=== PATIENT | female | born 2000 | race Caucasian/White ===

== ENCOUNTER 2018-02-13 01:52 | Emergency (ER) | payer SELFPAY ==
[2018-02-13] MEDS ORDERED: DIPHENHYDRAMINE HCL 50 MG/ML VIAL IV ONE (02:19)
[2018-02-13] MEDS ORDERED: DICYCLOMINE HCL 20 MG TABLET PO ONE (02:19)
[2018-02-13] MEDS ORDERED: KETOROLAC TROMETHAMINE INJ/PF 30 MG/1 ML SDV IV ONE (02:19)
[2018-02-13] MEDS ORDERED: METOCLOPRAMIDE HCL INJ/PF 10 MG/2 ML SDV IV ONE (02:19)
--- NOTE | 2018-02-13 02:26 | ER Document Report ---
ED General - General Chief Complaint: Back Pain Stated Complaint: ABDOMINAL PAIN, BACK PAIN, DENTAL PROBLEM Time Seen by Provider: 02/13/18 02:09 Mode of Arrival: Ambulatory Information source: Patient Notes: 17-year-old female with depression, anxiety, asthma, chronic abdominal pain, chronic back pain presents with complaint of back and abdominal pain and headache that started 1 hour prior to arrival. Patient describes the pain as constant, located in the epigastric and right upper quadrant. Headache is located in the forehead and describes as a mild ache. Patient has had associated nausea and one episode of vomiting. Patient states that this has been going on for years. She states that she has had recent endoscopy and colonoscopy as well as multiple CAT scans and ultrasounds which showed nothing. Patient is from [place] and states "they gave me narcotics because Tylenol does not work". Patient does admit to heavy drinking 3 days ago. She does admit to marijuana use for her anxiety. She does smoke cigarettes. Patient also complaining of gum pain. Patient did take Zofran prior to arrival. TRAVEL OUTSIDE OF THE U[place]S. IN LAST 30 DAYS: No - HPI Onset: Other Onset/Duration: Sudden Quality of pain: Sharp Severity: Moderate Associated symptoms: Nausea, Vomiting, Other - Dysuria. denies: Diarrhea, Fever Exacerbated by: Denies Relieved by: Denies - Related Data Allergies/Adverse Reactions: amoxicillin [From Augmentin] Allergy (Verified 02/13/18 01:58) amphetamine [From Adderall] Allergy (Verified 02/13/18 01:58) bupropion [From Wellbutrin] Allergy (Verified 02/13/18 01:58) clavulanic acid [From Augmentin] Allergy (Verified 02/13/18 01:58) dextroamphetamine [From Adderall] Allergy (Verified 02/13/18 01:58) latex Allergy (Verified 02/13/18 01:58) Penicillins Allergy (Verified 02/13/18 01:58) pineapple Allergy (Verified 02/13/18 01:58) trazodone Allergy (Verified 02/13/18 01:58) Past Medical History - General Information source: Patient - Social History Smoking Status: Current Every Day Smoker Cigarette use (# per day): Yes - 10 Smoking Education Provided: Yes - Smoking cessation counseling was provided for 4 minutes at the bedside Frequency of alcohol use: Heavy Drug Abuse: Marijuana Lives with: Family Family History: Reviewed & Not Pertinent Patient has suicidal ideation: No Patient has homicidal ideation: No Pulmonary Medical History: Reports: Hx Asthma GI Medical History: Reports: Other - Chronic abdominal pain Psychiatric Medical History: Reports: Hx Anxiety, Hx Depression Review of Systems - Review of Systems Notes: REVIEW OF SYSTEMS: CONSTITUTIONAL : Denies fever, chills, or sweats. Denies recent illness. Denies weight loss, recent hospitalizations. EENT: Denies visual changes, eye pain. Denies sore throat, oral lesions, difficulty swallowing. CARDIOVASCULAR: Denies chest pain. Denies palpitations. Denies lower extremity edema. RESPIRATORY: Denies cough. Denies shortness of breath, wheezing. GASTROINTESTINAL: Denies distention. Denies diarrhea. Denies blood in vomitus, stools, or per rectum. Denies black, tarry stools. Denies constipation. GENITOURINARY: Denies difficulty urinating, frequency, blood in urine, or vaginal discharge. MUSCULOSKELETAL: Denies neck pain or stiffness. Denies joint pain or swelling. SKIN: Denies rash, lesions or sores. HEMATOLOGIC : Denies easy bruising or bleeding. LYMPHATIC: Denies swollen glands. NEUROLOGICAL: Denies confusion or altered mental status. Denies loss of consciousness. Denies dizziness or lightheadedness. Denies headache. Denies weakness or paralysis. Denies problems difficulty with ambulation, slurred speech. Denies sensory loss, numbness, or tingling. Denies seizures. PSYCHIATRIC: Denies depression, suicidal ideation, or homicidal ideation. Denies visual or auditory hallucinations. PHYSICAL EXAMINATION: GENERAL: Well-appearing, well-nourished and in no acute distress. HEAD: Atraumatic, normocephalic. EYES: Pupils equal round and reactive to light, extraocular movements intact, conjunctiva are normal. ENT: Nares patent, oropharynx clear without exudates. Moist mucous membranes. NECK: Normal range of motion, supple without lymphadenopathy LUNGS: Breath sounds clear to auscultation bilaterally and equal. No wheezes rales or rhonchi. HEART: Regular rate and rhythm without murmurs ABDOMEN: Soft, nontender, nondistended abdomen. No guarding, no rebound. No masses appreciated. Female : deferred Musculoskeletal: Normal range of motion, no pitting or edema. No cyanosis. NEUROLOGICAL: Cranial nerves grossly intact. Normal speech, normal gait. Normal sensory, motor exams PSYCH: Normal mood, normal affect. SKIN: Warm, Dry, normal turgor, no rashes or lesions noted. Physical Exam - Vital signs Vitals: Temp Pulse Resp BP Pulse Ox 98.3 F 93 H 16 101/67 98 02/13/18 02:01 02/13/18 02:01 02/13/18 02:01 02/13/18 02:01 02/13/18 02:01 - Notes Notes: PHYSICAL EXAMINATION: GENERAL: Well-appearing, well-nourished and in no acute distress. HEAD: Atraumatic, normocephalic. EYES: Pupils equal round and reactive to light, extraocular movements intact, conjunctiva are normal. ENT: Nares patent, oropharynx clear without exudates. Moist mucous membranes. NECK: Normal range of motion, supple without lymphadenopathy LUNGS: Breath sounds clear to auscultation bilaterally and equal. No wheezes rales or rhonchi. HEART: Regular rate and rhythm without murmurs ABDOMEN: Diffuse abdominal tenderness with palpation. No guarding, no rebound. No masses appreciated. Female : deferred Musculoskeletal: Normal range of motion, no pitting or edema. No cyanosis. Bilateral paraspinal tenderness of the lumbar spine. NEUROLOGICAL: Cranial nerves grossly intact. Normal speech, normal gait. Normal sensory, motor exams PSYCH: Normal mood, normal affect. SKIN: Warm, Dry, normal turgor, no rashes or lesions noted. Course - Re-evaluation Re-evalutation: Laboratory 02/13/18 02/13/18 02/13/18 02:26 02:26 02:26 WBC 7.2 RBC 4.42 Hgb 13.4 Hct 38.7 MCV 88 MCH 30.3 MCHC 34.6 RDW 13.3 Plt Count 194 Seg Neutrophils % 40.3 L Lymphocytes % 45.8 H Monocytes % 10.8 Eosinophils % 2.3 Basophils % 0.8 Absolute Neutrophils 2.9 Absolute Lymphocytes 3.3 Absolute Monocytes 0.8 Absolute Eosinophils 0.2 Absolute Basophils 0.1 Sodium 142.2 Potassium 3.8 Chloride 103 Carbon Dioxide 29 Anion Gap 10 BUN 17 Creatinine 0.82 Est GFR ( Amer) > 60 Est GFR (Non-Af Amer) > 60 Glucose 91 Calcium 9.3 Total Bilirubin 1.1 Direct Bilirubin 0.2 Neonat Total Bilirubin Not Reportable Neonat Direct Bilirubin Not Reportable Neonat Indirect Bili Not Reportable AST 31 H ALT 43 H Alkaline Phosphatase 101 Total Protein 7.7 Albumin 4.1 Lipase 105.0 Urine Color YELLOW Urine Appearance CLOUDY Urine pH 7.0 Ur Specific [place] 1.024 Urine Protein 30 H Urine Glucose (UA) NEGATIVE Urine Ketones TRACE H Urine Blood NEGATIVE Urine Nitrite NEGATIVE Urine Bilirubin NEGATIVE Urine Urobilinogen 4.0 H Ur Leukocyte Esterase SMALL H Urine WBC (Auto) 45 Urine RBC (Auto) 7 Squamous Epi Cells Auto 5 Urine Mucus (Auto) RARE Urine Yeast (Budding) PRESENT Urine Ascorbic Acid NEGATIVE Urine HCG, Qual NEGATIVE Urine Opiates Screen Urine Methadone Screen Ur Barbiturates Screen Ur Phencyclidine Scrn Ur Amphetamines Screen U Benzodiazepines Scrn Urine Cocaine Screen U Marijuana (THC) Screen Serum Alcohol < 10 02/13/18 02:26 WBC RBC Hgb Hct MCV MCH MCHC RDW Plt Count Seg Neutrophils % Lymphocytes % Monocytes % Eosinophils % Basophils % Absolute Neutrophils Absolute Lymphocytes Absolute Monocytes Absolute Eosinophils Absolute Basophils Sodium Potassium Chloride Carbon Dioxide Anion Gap BUN Creatinine Est GFR ( Amer) Est GFR (Non-Af Amer) Glucose Calcium Total Bilirubin Direct Bilirubin Neonat Total Bilirubin Neonat Direct Bilirubin Neonat Indirect Bili AST ALT Alkaline Phosphatase Total Protein Albumin Lipase Urine Color Urine Appearance Urine pH Ur Specific [place] Urine Protein Urine Glucose (UA) Urine Ketones Urine Blood Urine Nitrite Urine Bilirubin Urine Urobilinogen Ur Leukocyte Esterase Urine WBC (Auto) Urine RBC (Auto) Squamous Epi Cells Auto Urine Mucus (Auto) Urine Yeast (Budding) Urine Ascorbic Acid Urine HCG, Qual Urine Opiates Screen NEGATIVE Urine Methadone Screen NEGATIVE Ur Barbiturates Screen NEGATIVE Ur Phencyclidine Scrn NEGATIVE Ur Amphetamines Screen NEGATIVE U Benzodiazepines Scrn NEGATIVE Urine Cocaine Screen NEGATIVE U Marijuana (THC) Screen UNCONFIRMED POSITIVE Serum Alcohol Abdomen Ultrasound 02/13/18 02:20 IMPRESSION: Unremarkable exam copyright 2011 [facility] [employer]- All Rights Reserved 02/13/18 03:44 Patient refusing IV placement. 02/13/18 03:59 Patient presents with chronic back and abdominal pain as well as headache. Found to have acute cystitis. Vitals wnl. No history of fever, or constitution symptoms to suggest ascending infection at this time. Patient is well in appearance, tolerating oral intake without difficulty. Patient's abdominal tenderness is chronic. She has had extensive recent workup including endoscopy , colonoscopy and multiple CAT scans which she states showed nothing. Right upper quadrant ultrasound performed today was within normal limits. Patient received Reglan and Benadryl for headache and nausea and Bentyl for abdominal pain. Her exam is not consistent with acute appendicitis, biliary pathology, acute pancreatitis, tubo-ovarian abscesses, or pelvic inflammatory disease. Patient will be started on antibiotics at this time. A culture has been sent. They will be discharged with return precautions and follow-up recommendations. 02/13/18 04:02 02/13/18 04:07 - Vital Signs Vital signs: Temp Pulse Resp BP Pulse Ox 98.3 F 93 H 16 101/67 98 02/13/18 02:01 02/13/18 02:01 02/13/18 02:01 02/13/18 02:01 02/13/18 02:01 - Laboratory Result Diagrams: 02/13/18 02:26 02/13/18 02:26 Laboratory results interpreted by me: 02/13/18 02/13/18 02/13/18 02:26 02:26 02:26 Seg Neutrophils % 40.3 L Lymphocytes % 45.8 H AST 31 H ALT 43 H Urine Protein 30 H Urine Ketones TRACE H Urine Urobilinogen 4.0 H Ur Leukocyte Esterase SMALL H - Diagnostic Test Radiology reviewed: Image reviewed, Reports reviewed Discharge - Discharge Clinical Impression: Chronic abdominal pain Urinary tract infection Qualifiers: Urinary tract infection type: site unspecified Hematuria presence: without hematuria Qualified Code(s): N39.0 - Urinary tract infection, site not specified Chronic back pain Qualifiers: Back pain location: low back pain Back pain laterality: bilateral Sciatica presence: without sciatica Qualified Code(s): M54.5 - Low back pain Condition: Good Disposition: HOME, SELF-CARE Instructions: Abdominal Pain ([facility]), Low Back Pain ([facility]), Urinary Tract Infection ([facility]) Additional Instructions: Your urine shows findings consistent with a urinary tract infection. Please take all the antibiotics as directed even if your symptoms have improved. Please follow-up with your primary care physician as needed. Return to emergency room if you develop fever >101F, persistent vomiting, become lethargic , have severe pain in your sides, or any other symptoms that are concerning to you. Follow up with your [id number] hours for further care or return to the ED IMMEDIATELY if symptoms worsen or you have any concerns. If you cannot afford to follow up with your primary care physician a list of low cost clinics have been provided at the end of your discharge papers as well. Most prescribed medications have multiple side effects. The safest thing to do is when filling your prescription speak to your pharmacist regarding possible interactions with your normal home medications and over the counter medications such as Ibuprofen, Tylenol, Benadryl. If you experience any symptoms that cause you discomfort or concern you should discontinue the medication immediately and return to the emergency room or call your primary care physician. Prescriptions: Cephalexin Monohydrate [Keflex 500 mg Capsule] 500 mg PO BID 5 Days #10 capsule Dicyclomine HCl [Bentyl 20 mg Tablet] 20 mg PO QID #15 tablet Forms: Smoking Cessation Education
[2018-02-13] MEDS ORDERED: RINGERS SOLUTION,LACTATED 1,000 ML IV ONE (02:27)
[2018-02-13] MEDS ORDERED: ALBUTEROL SULFATE HFA (90 MCG/PUFF) 8 GM MDI (1 MDI/ER DISP) IH PRN (02:28)
[2018-02-13 02:48] LABS: ABSOLUTE BASOPHILS # (AUTO) 0.1 10^3/uL (0.0-0.2); ABSOLUTE EOSINOPHILS # (AUTO) 0.2 10^3/uL (0.0-0.6); ABSOLUTE LYMPHOCYTES (AUTO) 3.3 10^3/uL (0.5-4.7); ABSOLUTE MONOCYTES (AUTO) 0.8 10^3/uL (0.1-1.4); ABSOLUTE NEUT (AUTO) 2.9 10^3/uL (1.7-8.2); BASOPHILS % (AUTO) 0.8 % (0-2); EOSINOPHILS % (AUTO) 2.3 % (0-6); HEMATOCRIT 38.7 % (36.0-47.0); HEMOGLOBIN 13.4 g/dL (12.0-15.5); LYMPHOCYTES % (AUTO) 45.8 % (13-45); MEAN CORPUSCULAR HEMOGLOBIN 30.3 pg (27.0-33.4); MEAN CORPUSCULAR HGB CONC 34.6 g/dL (32.0-36.0); MEAN CORPUSCULAR VOLUME 88 fl (80-97); MONOCYTES % (AUTO) 10.8 % (3-13); PLATELET COUNT 194 10^3/uL (150-450); RED BLOOD COUNT 4.42 10^6/uL (3.72-5.28); RED CELL DISTRIBUTION WIDTH 13.3 % (11.5-14.0); SEGMENTED NEUTROPHILS % (AUTO) 40.3 % (42-78); TOTAL CELLS COUNTED % (AUTO) 100 %; WHITE BLOOD COUNT 7.2 10^3/uL (4.0-10.5)
[2018-02-13 02:50] LABS: APPEARANCE,URINE CLOUDY; BILIRUBIN,URINE NEGATIVE (NEGATIVE); COLOR,URINE YELLOW; GLUCOSE, URINE NEGATIVE (NEGATIVE); KETONES,URINE TRACE mg/dL (NEGATIVE); LEUKOCYTE ESTERASE,URINE SMALL (NEGATIVE); NITRITE,URINE NEGATIVE (NEGATIVE); PROTEIN,URINE 30 mg/dL (NEGATIVE); URINE SPECIFIC GRAVITY 1.024
[2018-02-13 03:02] LABS: URINE AMPHETAMINES SCREEN NEGATIVE; URINE BARBITURATES SCREEN NEGATIVE; URINE BENZODIAZEPINES SCREEN NEGATIVE; URINE COCAINE SCREEN NEGATIVE; URINE MARIJUANA (THC) SCREEN UNCONFIRMED POSITIVE; URINE METHADONE SCREEN NEGATIVE; URINE PHENCYCLIDINE SCREEN NEGATIVE
--- NOTE | 2018-02-13 03:02 | RADIOLOGY REPORT (SQ) ---
EXAM DESCRIPTION: US ABDOMEN LIMITED COMPLETED DATE/TME: 02/13/2018 02:20 CLINICAL HISTORY: 17 years, Female, ruq pain COMPARISON: None. TECHNIQUE: Limited ultrasound of the right upper quadrant LIMITATIONS: None. FINDINGS: The liver is homogenous in echotexture without focal lesion. No gallstones or gallbladder wall thickening. The CBD measures 1 mm. The visualized portions of the right kidney, pancreas, and abdominal aorta are unremarkable. There is no ascites. IMPRESSION: Unremarkable exam copyright 2010 [employer]- All Rights Reserved
[2018-02-13 03:07] LABS: ALANINE AMINOTRANSFERASE 43 U/L (5-35); ALBUMIN 4.1 g/dL (3.7-5.6); ALKALINE PHOSPHATASE 101 U/L (50-135); ANION GAP 10 (5-19); ASPARTATE AMINO TRANSFERASE 31 U/L (5-30); BILIRUBIN,DIRECT 0.2 mg/dL (0.0-0.4); BILIRUBIN,TOTAL 1.1 mg/dL (0.2-1.3); BLOOD UREA NITROGEN 17 mg/dL (7-20); CALCIUM 9.3 mg/dL (8.4-10.2); CARBON DIOXIDE 29 mmol/L (22-30); CHLORIDE 103 mmol/L (98-107); GLUCOSE 91 mg/dL (75-110); POTASSIUM 3.8 mmol/L (3.6-5.0); SODIUM 142.2 mmol/L (137-145); TOTAL PROTEIN 7.7 g/dL (6.3-8.2)
[2018-02-13] MEDS ORDERED: METOCLOPRAMIDE HCL 10 MG TABLET PO ONE (03:26)
[2018-02-13] MEDS ORDERED: DIPHENHYDRAMINE HCL 50 MG CAPSULE PO ONE (03:26)
[2018-02-13 03:27] LABS: ALCOHOL < 10 mg/dL (NONE DETECTED)
[2018-02-13] MEDS ORDERED: CEPHALEXIN 500 MG CAPSULE PO ONE (03:42)
[2018-02-13 04:30] VITALS: BP 106/63
== END 2018-02-13 04:31 | disposition home or self-care (01) ==
LOC: ER 01:52
DX: N39.0 Urinary tract infection, site not specified (principal); M54.5 Low back pain; R51 Headache; R10.13 Epigastric pain; R10.11 Right upper quadrant pain; M54.9 Dorsalgia, unspecified; R10.9 Unspecified abdominal pain; G89.29 Other chronic pain; K08.89 Other specified disorders of teeth and supporting structures; F32.9 Major depressive disorder, single episode, unspecified; F41.9 Anxiety disorder, unspecified; R11.2 Nausea with vomiting, unspecified; R30.0 Dysuria; F17.210 Nicotine dependence, cigarettes, uncomplicated; J45.909 Unspecified asthma, uncomplicated
CPT/HCPCS: 99406; 99284; 36415; 87086; 80307 ×2; 83690; 85025; 81025; 80053; 81001; 76705; J3490 ×2

== ENCOUNTER 2018-02-16 14:19 | Emergency (ER) | payer SELFPAY ==
--- NOTE | 2018-02-16 14:42 | ER Document Report ---
ED Medical Screen (RME) - General Chief Complaint: Breathing Difficulty Stated Complaint: NAUSEA,SHORT OF BREATH Time Seen by Provider: 02/16/18 14:40 Mode of Arrival: Ambulatory Information source: Patient TRAVEL OUTSIDE OF THE U[place] IN LAST 30 DAYS: No - HPI Patient complains to provider of: hematemesis; seizures Onset: Other - pt with multiple c/o including vomiting blood yesterday, siezures, and low blood sugar - Related Data Allergies/Adverse Reactions: amoxicillin [From Augmentin] Allergy (Verified 02/16/18 14:20) amphetamine [From Adderall] Allergy (Verified 02/16/18 14:20) bupropion [From Wellbutrin] Allergy (Verified 02/16/18 14:20) clavulanic acid [From Augmentin] Allergy (Verified 02/16/18 14:20) dextroamphetamine [From Adderall] Allergy (Verified 02/16/18 14:20) latex Allergy (Verified 02/16/18 14:20) Penicillins Allergy (Verified 02/16/18 14:20) pineapple Allergy (Verified 02/16/18 14:20) trazodone Allergy (Verified 02/16/18 14:20) Past Medical History Pulmonary Medical History: Reports: Hx Asthma, Hx Bronchitis Neurological Medical History: Reports: Hx Seizures Renal/ Medical History: Denies: Hx Peritoneal Dialysis Musculoskeltal Medical History: Reports Hx Arthritis Psychiatric Medical History: Reports: Hx Anxiety, Hx Bipolar Disorder, Hx Depression Past Surgical History: Reports: Hx Oral Surgery, Hx Orthopedic Surgery Physical Exam - Vital signs Vitals: Temp Pulse Resp BP Pulse Ox 98.0 F 82 16 104/63 98 02/16/18 14:30 02/16/18 14:30 02/16/18 14:30 02/16/18 14:30 02/16/18 14:30 Course - Vital Signs Vital signs: Temp Pulse Resp BP Pulse Ox 98.0 F 82 16 104/63 98 02/16/18 14:30 02/16/18 14:30 02/16/18 14:30 02/16/18 14:30 02/16/18 14:30
[2018-02-16] MEDS ORDERED: NORMAL SALINE 1000 ML 1,000 ML IV ONE (15:36)
[2018-02-16 15:43] LABS: ABSOLUTE MONOCYTES (AUTO) 0.4 10^3/uL (0.1-1.4); BASOPHILS % (AUTO) 0.6 % (0-2); EOSINOPHILS % (AUTO) 0.2 % (0-6); HEMATOCRIT 43.6 % (36.0-47.0); HEMOGLOBIN 15.2 g/dL (12.0-15.5); LYMPHOCYTES % (AUTO) 26.8 % (13-45); MEAN CORPUSCULAR HEMOGLOBIN 30.5 pg (27.0-33.4); MEAN CORPUSCULAR HGB CONC 34.8 g/dL (32.0-36.0); MEAN CORPUSCULAR VOLUME 88 fl (80-97); MONOCYTES % (AUTO) 5.5 % (3-13); PLATELET COUNT 241 10^3/uL (150-450); RED BLOOD COUNT 4.98 10^6/uL (3.72-5.28); RED CELL DISTRIBUTION WIDTH 13.3 % (11.5-14.0); SEGMENTED NEUTROPHILS % (AUTO) 66.9 % (42-78); TOTAL CELLS COUNTED % (AUTO) 100 %; WHITE BLOOD COUNT 7.4 10^3/uL (4.0-10.5)
[2018-02-16 15:55] LABS: APPEARANCE,URINE SLIGHTLY-CLOUDY; BILIRUBIN,URINE NEGATIVE (NEGATIVE); COLOR,URINE YELLOW; GLUCOSE, URINE NEGATIVE (NEGATIVE); KETONES,URINE NEGATIVE (NEGATIVE); LEUKOCYTE ESTERASE,URINE NEGATIVE (NEGATIVE); NITRITE,URINE NEGATIVE (NEGATIVE); PROTEIN,URINE NEGATIVE (NEGATIVE); URINE SPECIFIC GRAVITY 1.016; UROBILINOGEN,URINE NEGATIVE mg/dL (<2.0)
[2018-02-16 16:03] LABS: ALANINE AMINOTRANSFERASE 25 U/L (5-35); ALBUMIN 4.7 g/dL (3.7-5.6); ALKALINE PHOSPHATASE 101 U/L (50-135); ANION GAP 10 (5-19); ASPARTATE AMINO TRANSFERASE 37 U/L (5-30); BILIRUBIN,DIRECT 0.3 mg/dL (0.0-0.4); BLOOD UREA NITROGEN 10 mg/dL (7-20); CALCIUM 9.5 mg/dL (8.4-10.2); CARBON DIOXIDE 28 mmol/L (22-30); CHLORIDE 103 mmol/L (98-107); GLUCOSE 112 mg/dL (75-110); LIPASE 56.3 U/L (23-300); POTASSIUM 4.2 mmol/L (3.6-5.0); SODIUM 140.9 mmol/L (137-145); TOTAL PROTEIN 8.6 g/dL (6.3-8.2)
[2018-02-16 16:22] LABS: URINE AMPHETAMINES SCREEN NEGATIVE; URINE BARBITURATES SCREEN NEGATIVE; URINE BENZODIAZEPINES SCREEN NEGATIVE; URINE COCAINE SCREEN NEGATIVE; URINE MARIJUANA (THC) SCREEN NEGATIVE; URINE METHADONE SCREEN NEGATIVE; URINE PHENCYCLIDINE SCREEN NEGATIVE
--- NOTE | 2018-02-16 16:39 | PSYCHOLOGICAL NOTE ---
Psych Note - Psych Note Date seen by psych provider: 02/16/18 Time seen by psych provider: 16:00 Psych Note: Reason for Consult: anxiety Patient reports she just arrived here from [place] and has extensive psychiatric history. She reports that she has been inpatient multiple times. She reports she would like assistance in learning local resources to obtain outpatient mental health services. She asked about medications such as Xanax or Thorazine as a "as needed for my depression." When asked about her mental health diagnosis she reports "ADHD ADD ODD PTSD autism 1, bipolar, borderline personality disorder, Asperger's, major depressive disorder, anxiety, social anxiety, I pretty much have everything there is." Patient is alert and orientated to person, place, time and circumstance. Mood is euthymic with congruent affect is smiling engaging with clinician. Patient denies current suicidal and homicidal ideation. Delusions are absent behaviors congruent with an intact reality based presentation I organized and linear thought process. Eye contact is well maintained. Conversational speech is within normal rate, tone and prosody. Intellectual abilities appear to be within the average range. Attention and concentration are fair. Insight, judgment, impulse control are fair. No medication recommendations at this time Borderline personality disorder Impression\\plan: Patient is cleared from acute psychiatric services. Clinician provided psychoeducation on available services in local area, the use of emergency services, and proper use of medications and compliancy. Patient was provided resource list of local providers including mobile crisis contact information. Patient was also provided local transit information with bus stops and cost in addition to caring clinic information. Dr. Lebron was consulted care management this patient; attending physicians in agreement with recommendations and disposition.
--- NOTE | 2018-02-16 16:49 | ER Document Report ---
ED General - General Chief Complaint: Breathing Difficulty Stated Complaint: NAUSEA,SHORT OF BREATH Time Seen by Provider: 02/16/18 14:40 Mode of Arrival: Ambulatory TRAVEL OUTSIDE OF THE [place] IN LAST 30 DAYS: No - HPI Patient complains to provider of: Multiple complaints Notes: Patient coming in for multiple complaints. Patient states she is having abdominal pain nausea vomiting shortness of breath also has had multiple stress- induced seizures patient denies a history of seizures in the past however states that she has had stress-induced seizures before. Patient denies taking any medications for seizures in the past. Patient states recently was seen for abdominal pain however medications for the abdominal pain are not working patient was prescribed Bentyl and also was given Zofran for nausea. Patient is requesting stronger medications for nausea. Patient states she does smoke nerves states she is slightly short of breath. Patient otherwise upon my evaluation is resting comfortably no signs of any obvious distress. - Related Data Allergies/Adverse Reactions: clozapine [From Clozaril] Allergy (Severe, Verified 02/16/18 14:47) amoxicillin [From Augmentin] Allergy (Verified 02/16/18 14:47) amphetamine [From Adderall] Allergy (Verified 02/16/18 14:47) bupropion [From Wellbutrin] Allergy (Verified 02/16/18 14:47) clavulanic acid [From Augmentin] Allergy (Verified 02/16/18 14:47) dextroamphetamine [From Adderall] Allergy (Verified 02/16/18 14:47) latex Allergy (Verified 02/16/18 14:47) Penicillins Allergy (Verified 02/16/18 14:47) pineapple Allergy (Verified 02/16/18 14:47) trazodone Allergy (Verified 02/16/18 14:47) Past Medical History - General Information source: Patient - Social History Smoking Status: Current Every Day Smoker Chew tobacco use (# tins/day): No Frequency of alcohol use: 2x this week Drug Abuse: Marijuana Family History: Reviewed & Not Pertinent Patient has suicidal ideation: No Patient has homicidal ideation: No Pulmonary Medical History: Reports: Hx Asthma, Hx Bronchitis Neurological Medical History: Reports: Hx Seizures Renal/ Medical History: Denies: Hx Peritoneal Dialysis Musculoskeletal Medical History: Reports Hx Arthritis Psychiatric Medical History: Reports: Hx Anxiety, Hx Bipolar Disorder, Hx Depression Past Surgical History: Reports: Hx Oral Surgery, Hx Orthopedic Surgery Review of Systems - Review of Systems Constitutional: See HPI EENT: No symptoms reported Cardiovascular: No symptoms reported Respiratory: No symptoms reported Gastrointestinal: No symptoms reported Genitourinary: No symptoms reported Female Genitourinary: No symptoms reported Musculoskeletal: No symptoms reported Skin: No symptoms reported Hematologic/Lymphatic: No symptoms reported Neurological/Psychological: No symptoms reported Physical Exam - Vital signs Vitals: Temp Pulse Resp BP Pulse Ox 98.0 F 82 16 104/63 98 02/16/18 14:30 02/16/18 14:30 02/16/18 14:30 02/16/18 14:30 02/16/18 14:30 Interpretation: Normal - General General appearance: Appears well, Alert - HEENT Head: Normocephalic, Atraumatic Eyes: Normal Pupils: PERRL - Respiratory Respiratory status: No respiratory distress Chest status: Nontender Breath sounds: Normal Chest palpation: Normal - Cardiovascular Rhythm: Regular Heart sounds: Normal auscultation Murmur: No - Abdominal Inspection: Normal Distension: No distension Bowel sounds: Normal Tenderness: Nontender Organomegaly: No organomegaly - Back Back: Normal, Nontender - Extremities General upper extremity: Normal inspection, Nontender, Normal color, Normal ROM , Normal temperature General lower extremity: Normal inspection, Nontender, Normal color, Normal ROM , Normal temperature, Normal weight bearing. No: Aroldo's sign - Neurological Neuro grossly intact: Yes Cognition: Normal Orientation: AAOx4 Roly Coma Scale Eye Opening: Spontaneous Sarah Coma Scale Verbal: Oriented Sarah Coma Scale Motor: Obeys Commands Sarah Coma Scale Total: 15 Speech: Normal Motor strength normal: LUE, RUE, LLE, RLE Sensory: Normal - Psychological Associated symptoms: Normal affect, Normal mood - Skin Skin Temperature: Warm Skin Moisture: Dry Skin Color: Normal Course - Re-evaluation Re-evalutation: 02/16/18 21:59 Patient with multiple complaints physical examination otherwise benign. Laboratory studies also did not reveal any critical pathology. Recommend patient continue her medications we will give the patient Reglan for her nausea. Patient information will be given to our executive secretary social welfare that she has no primary care but has multiple chronic issues that would need primary care follow -up - Vital Signs Vital signs: Temp Pulse Resp BP Pulse Ox 98.0 F 87 16 93/79 L 100 02/16/18 17:03 02/16/18 17:03 02/16/18 14:30 02/16/18 17:03 02/16/18 17:03 - Laboratory Result Diagrams: 02/16/18 15:00 02/16/18 15:00 Laboratory results interpreted by me: 02/16/18 02/16/18 15:00 15:00 Glucose 112 H AST 37 H Total Protein 8.6 H Urine Blood SMALL H Discharge - Discharge Clinical Impression: Chronic abdominal pain, Nausea, No problem, feared complaint unfounded Condition: Good Disposition: HOME, SELF-CARE Instructions: Abdominal Pain ([facility]), Family Physicians / Practices, Nausea or Vomiting, Nonspecific ([facility]) Additional Instructions: Your evaluation does not reveal any critical pathology. I recommend follow-up with a family physicians provided I will give our executive secretary social welfare your information please make sure we have good contact information so that we can establish a primary care for further evaluation of your chronic disease processes. Continue all medications as prescribed along with your Zofran you can take the Reglan as I was prescribing today. Return to ER if symptoms worsen. Prescriptions: Metoclopramide HCl [Reglan] 5 mg PO Q6 #30 tablet
[2018-02-16 17:06] VITALS: BP 93/79
== END 2018-02-16 17:06 | disposition home or self-care (01) ==
LOC: ER 14:19
DX: R10.9 Unspecified abdominal pain (principal); G89.29 Other chronic pain; R11.2 Nausea with vomiting, unspecified; R06.02 Shortness of breath; R56.9 Unspecified convulsions; F17.200 Nicotine dependence, unspecified, uncomplicated; J45.909 Unspecified asthma, uncomplicated; R11.0 Nausea
CPT/HCPCS: 99285; 96360; 36415; 83690; 85025; 81025; 80053; 81001; 80307; J7030

== ENCOUNTER 2018-02-18 13:34 | Emergency (ER) | payer SELFPAY ==
[2018-02-18 13:45] VITALS: BP 114/74
[2018-02-18] MEDS ORDERED: ONDANSETRON 4 MG TAB.RAPDIS PO ONE (16:06)
[2018-02-18] MEDS ORDERED: ONDANSETRON ODT 4 MG TAB (6 TAB/ER DISP) PO PRN (16:07)
--- NOTE | 2018-02-18 16:09 | ER Document Report ---
ED General - General Chief Complaint: Nausea/Vomiting Stated Complaint: ABDOMINAL PAIN Time Seen by Provider: 02/18/18 15:51 Mode of Arrival: Medic Information source: Patient, [facility] Records Notes: 17-year-old female with depression, anxiety, asthma, chronic abdominal pain, chronic back pain presents with complaint of back and abdominal pain and headache that started 1 hour prior to arrival. Patient describes the pain as constant, located in the epigastric and right upper quadrant. Headache is located in the forehead and describes as a mild ache. Patient has had associated nausea and vomiting which is chronic. Patient states that this has been going on for years. She states that she has had recent endoscopy and colonoscopy as well as multiple CAT scans and ultrasounds which showed nothing. Patient is from [place] and states "they gave me narcotics because Tylenol does not work". Patient does admit to heavy drinking 3 days ago. She does admit to marijuana use for her anxiety. She does smoke cigarettes. Patient also states she has had multiple stress-induced seizures patient denies a history of seizures in the past however states that she has had stress- induced seizures before. Last seizure was just prior to arrival while on the phone with EMS. Patient reports that she is living in a hotel but is from [place]. Patient denies taking any medications for seizures in the past. Patient states recently was seen for abdominal pain however medications for the abdominal pain are not working patient was prescribed Bentyl and also was given Zofran for nausea. Patient is requesting stronger medications for nausea. Patient states she does smoke nerves states she is slightly short of breath. Patient otherwise upon my evaluation is resting comfortably no signs of any obvious distress. This is the patient's third emergency department visit in the month of February. TRAVEL OUTSIDE OF THE [place] IN LAST 30 DAYS: No - HPI Onset: Other Onset/Duration: Persistent Quality of pain: Achy Associated symptoms: Nausea, Vomiting. denies: Fever Exacerbated by: Denies Relieved by: Denies Similar symptoms previously: Yes Recently seen / treated by doctor: Yes - Related Data Allergies/Adverse Reactions: clozapine [From Clozaril] Allergy (Severe, Verified 02/18/18 13:38) amoxicillin [From Augmentin] Allergy (Verified 02/18/18 13:38) amphetamine [From Adderall] Allergy (Verified 02/18/18 13:38) bupropion [From Wellbutrin] Allergy (Verified 02/18/18 13:38) clavulanic acid [From Augmentin] Allergy (Verified 02/18/18 13:38) dextroamphetamine [From Adderall] Allergy (Verified 02/18/18 13:38) latex Allergy (Verified 02/18/18 13:38) Penicillins Allergy (Verified 02/18/18 13:38) pineapple Allergy (Verified 02/18/18 13:38) trazodone Allergy (Verified 02/18/18 13:38) Past Medical History - General Information source: Patient - Social History Smoking Status: Current Some Day Smoker Cigarette use (# per day): Yes Frequency of alcohol use: Occasional Drug Abuse: Marijuana Lives with: Alone Family History: Reviewed & Not Pertinent Patient has suicidal ideation: No Patient has homicidal ideation: No Pulmonary Medical History: Reports: Hx Asthma, Hx Bronchitis Neurological Medical History: Reports: Hx Seizures Renal/ Medical History: Denies: Hx Peritoneal Dialysis Musculoskeletal Medical History: Reports Hx Arthritis Psychiatric Medical History: Reports: Hx Anxiety, Hx Bipolar Disorder, Hx Depression Past Surgical History: Reports: Hx Oral Surgery, Hx Orthopedic Surgery Review of Systems - Review of Systems Constitutional: Recent illness. denies: Fever, Malaise EENT: denies: Nose congestion Cardiovascular: denies: Chest pain Respiratory: denies: Cough, Short of breath Gastrointestinal: Abdominal pain, Nausea, Vomiting Genitourinary: denies: Dysuria Female Genitourinary: denies: Musculoskeletal: No symptoms reported Skin: denies: Rash Hematologic/Lymphatic: No symptoms reported Neurological/Psychological: Seizure -: Yes All other systems reviewed and negative Physical Exam - Vital signs Vitals: Temp Pulse Resp BP Pulse Ox 98.2 F 84 16 114/74 98 02/18/18 13:42 02/18/18 13:42 02/18/18 13:42 02/18/18 13:42 02/18/18 13:42 Interpretation: Normal - Notes Notes: PHYSICAL EXAMINATION: GENERAL: Well-appearing, well-nourished and in no acute distress. HEAD: Atraumatic, normocephalic. No tongue laceration EYES: Pupils equal round and reactive to light, extraocular movements intact, conjunctiva are normal. ENT: Nares patent, oropharynx clear without exudates. Moist mucous membranes. NECK: Normal range of motion, supple without lymphadenopathy LUNGS: Breath sounds clear to auscultation bilaterally and equal. No wheezes rales or rhonchi. HEART: Regular rate and rhythm without murmurs ABDOMEN: Soft, nontender, nondistended abdomen. No guarding, no rebound. No masses appreciated. No evidence of urinary incontinence Female : deferred Musculoskeletal: Normal range of motion, no pitting or edema. No cyanosis. NEUROLOGICAL: Cranial nerves grossly intact. Normal speech, normal gait. Normal sensory, motor exams PSYCH: Normal mood, normal affect. SKIN: Warm, Dry, normal turgor, no rashes or lesions noted. Course - Re-evaluation Re-evalutation: 12/ Temp Pulse Resp BP Pulse Ox 98.2 F 84 16 114/74 98 02/18/18 13:42 02/18/18 13:42 02/18/18 13:42 02/18/18 13:42 02/18/18 13:42 19:44 17-year-old female presents for the third time in 10 days with complaints of nausea, vomiting, abdominal pain and seizure-like activity. Vital signs reviewed and within normal limits upon arrival. Patient does not appear toxic or dehydrated. She is in no acute distress. She is alert and oriented x4. Does not appear postictal. Has no evidence of tongue laceration and or urinary incontinence. Unclear why the patient is in [place] when she states that she lives in [place]. She states that she has been staying alone at a hotel. Previous medical records, nursing notes, labs and imaging reviewed. Social work contacted for help with return home to [place] and chronic medical issues. Patient was given Zofran for nausea. She was not seen vomiting during her ED course. Social work to follow-up with the patient this week. No indication for further testing at this time. Patient was evaluated and treated as appropriate for the patient's presenting symptoms and complaint, with consideration of any critical or life threatening conditions that may be associated with their obtained history and exam as noted above. All results were discussed with patient. Patient provided the opportunity to ask questions, and express concerns. Patient was educated on treatments based on their presumed diagnosis as noted above. At this time we will discharge the patient with return precautions and follow-up recommendations. Verbal discharge instructions given a the bedside. Medication warnings reviewed. Patient is in agreement with this plan and has verbalized understanding of return precautions. After careful consideration I feel that that patient can be safely discharged from the emergency department, they were advised to followup with a primary care physician in 2-3 days. Dictation on this chart was performed using voice recognition software and may result in unintended grammatical, spelling, syntax or errors. 02/18/18 19:47 - Vital Signs Vital signs: Temp Pulse Resp BP Pulse Ox 98.2 F 84 16 114/74 98 02/18/18 13:42 02/18/18 13:42 02/18/18 13:42 02/18/18 13:42 02/18/18 13:42 Discharge - Discharge Clinical Impression: Chronic nausea vomiting, Chronic abdominal pain, Nausea, No problem, feared complaint unfounded Condition: Good Disposition: HOME, SELF-CARE Instructions: Abdominal Pain ([facility]), Nausea or Vomiting, Nonspecific ([facility]) Additional Instructions: Follow up with your [id number] hours for further care or return to the ED IMMEDIATELY if symptoms worsen or you have any concerns. If you cannot afford to follow up with your primary care physician a list of low cost clinics have been provided at the end of your discharge papers as well. Most prescribed medications have multiple side effects. The safest thing to do is when filling your prescription speak to your pharmacist regarding possible interactions with your normal home medications and over the counter medications such as Ibuprofen, Tylenol, Benadryl. If you experience any symptoms that cause you discomfort or concern you should discontinue the medication immediately and return to the emergency room or call your primary care physician. Forms: Smoking Cessation Education Referrals: [facility] [NO [facility]AL MD] - Follow up in 3-5 days
[2018-02-18 18:09] LABS: AMORPHOUS SEDIMENT,URINE TRACE /HPF; APPEARANCE,URINE CLOUDY; BILIRUBIN,URINE NEGATIVE (NEGATIVE); COLOR,URINE YELLOW; GLUCOSE, URINE NEGATIVE (NEGATIVE); KETONES,URINE NEGATIVE (NEGATIVE); LEUKOCYTE ESTERASE,URINE NEGATIVE (NEGATIVE); NITRITE,URINE NEGATIVE (NEGATIVE); PROTEIN,URINE NEGATIVE (NEGATIVE); URINE SPECIFIC GRAVITY 1.019; UROBILINOGEN,URINE NEGATIVE mg/dL (<2.0)
== END 2018-02-18 17:28 | disposition home or self-care (01) ==
LOC: ER 13:34
DX: R11.2 Nausea with vomiting, unspecified (principal); G89.29 Other chronic pain; R10.9 Unspecified abdominal pain; F17.210 Nicotine dependence, cigarettes, uncomplicated; Z88.0 Allergy status to penicillin; Z91.040 Latex allergy status; Z88.6 Allergy status to analgesic agent
CPT/HCPCS: 99284; 81001; S0119

== ENCOUNTER 2018-04-05 10:36 | Emergency (ER) | payer SELFPAY ==
[2018-04-05 11:01] VITALS: BP 126/66
--- NOTE | 2018-04-05 11:34 | ER Document Report ---
ED Medical Screen (RME) - General Chief Complaint: Nausea Stated Complaint: IUD PROBLEMS Time Seen by Provider: 04/05/18 11:30 Notes: Patient says she had a seizure this morning. She has a seizure disorder and her last seizure was a few weeks ago. She is unable to afford any of the medications that have been prescribed for her seizures. She says that they have been worked up and she is told her due to stress and her anxiety. Patient is also complaining of being nauseated and not being able to eat anything for 3 days. She says her anxiety causes her to throw up any food that she eats almost immediately. She feels that is also related to her anxiety. Third, patient says she is having cramping pelvic pain for about a year which she attributes to her IUD. She is unable to afford a TIP CEMENTER appointment to care for the IUD. Patient is on no medications at this time. TRAVEL OUTSIDE OF THE [place] IN LAST 30 DAYS: No - Related Data Allergies/Adverse Reactions: clozapine [From Clozaril] Allergy (Severe, Verified 02/18/18 13:38) amoxicillin [From Augmentin] Allergy (Verified 02/18/18 13:38) amphetamine [From Adderall] Allergy (Verified 02/18/18 13:38) bupropion [From Wellbutrin] Allergy (Verified 02/18/18 13:38) clavulanic acid [From Augmentin] Allergy (Verified 02/18/18 13:38) dextroamphetamine [From Adderall] Allergy (Verified 02/18/18 13:38) latex Allergy (Verified 02/18/18 13:38) Penicillins Allergy (Verified 02/18/18 13:38) pineapple Allergy (Verified 02/18/18 13:38) trazodone Allergy (Verified 02/18/18 13:38) Past Medical History - Social History Chew tobacco use (# tins/day): No Frequency of alcohol use: Occasional Drug Abuse: Marijuana Pulmonary Medical History: Reports: Hx Asthma, Hx Bronchitis Neurological Medical History: Reports: Hx Seizures Renal/ Medical History: Denies: Hx Peritoneal Dialysis Musculoskeltal Medical History: Reports Hx Arthritis Psychiatric Medical History: Reports: Hx Anxiety, Hx Bipolar Disorder, Hx Depression Past Surgical History: Reports: Hx Oral Surgery, Hx Orthopedic Surgery Physical Exam - Vital signs Vitals: Temp Pulse Resp BP Pulse Ox 99.1 F 72 16 126/66 H 100 04/05/18 11:00 04/05/18 11:00 04/05/18 11:00 04/05/18 11:00 04/05/18 11:00 Course - Vital Signs Vital signs: Temp Pulse Resp BP Pulse Ox 99.1 F 72 16 126/66 H 100 04/05/18 11:00 04/05/18 11:00 04/05/18 11:00 04/05/18 11:00 04/05/18 11:00
[2018-04-05 12:11] LABS: ABSOLUTE LYMPHOCYTES (AUTO) 1.7 10^3/uL (0.5-4.7); ABSOLUTE MONOCYTES (AUTO) 0.7 10^3/uL (0.1-1.4); ABSOLUTE NEUT (AUTO) 7.6 10^3/uL (1.7-8.2); BASOPHILS % (AUTO) 0.3 % (0-2); EOSINOPHILS % (AUTO) 0.5 % (0-6); HEMATOCRIT 44.6 % (36.0-47.0); HEMOGLOBIN 15.3 g/dL (12.0-15.5); LYMPHOCYTES % (AUTO) 17.1 % (13-45); MEAN CORPUSCULAR HEMOGLOBIN 30.8 pg (27.0-33.4); MEAN CORPUSCULAR HGB CONC 34.4 g/dL (32.0-36.0); MEAN CORPUSCULAR VOLUME 90 fl (80-97); MONOCYTES % (AUTO) 6.5 % (3-13); PLATELET COUNT 221 10^3/uL (150-450); RED BLOOD COUNT 4.98 10^6/uL (3.72-5.28); SEGMENTED NEUTROPHILS % (AUTO) 75.6 % (42-78); TOTAL CELLS COUNTED % (AUTO) 100 %
[2018-04-05 12:29] LABS: APPEARANCE,URINE CLOUDY; BILIRUBIN,URINE NEGATIVE (NEGATIVE); COLOR,URINE YELLOW; GLUCOSE, URINE NEGATIVE (NEGATIVE); KETONES,URINE NEGATIVE (NEGATIVE); LEUKOCYTE ESTERASE,URINE LARGE (NEGATIVE); NITRITE,URINE NEGATIVE (NEGATIVE); PROTEIN,URINE NEGATIVE (NEGATIVE); URINE SPECIFIC GRAVITY 1.021; UROBILINOGEN,URINE NEGATIVE mg/dL (<2.0)
[2018-04-05 12:30] LABS: ALANINE AMINOTRANSFERASE 15 U/L (5-35); ALKALINE PHOSPHATASE 82 U/L (50-135); ANION GAP 11 (5-19); ASPARTATE AMINO TRANSFERASE 15 U/L (5-30); BILIRUBIN,DIRECT 0.2 mg/dL (0.0-0.4); BLOOD UREA NITROGEN 14 mg/dL (7-20); CALCIUM 9.7 mg/dL (8.4-10.2); CARBON DIOXIDE 27 mmol/L (22-30); CHLORIDE 106 mmol/L (98-107); GLUCOSE 112 mg/dL (75-110); LIPASE 53.6 U/L (23-300); POTASSIUM 4.4 mmol/L (3.6-5.0); SODIUM 143.8 mmol/L (137-145); TOTAL PROTEIN 7.9 g/dL (6.3-8.2)
--- NOTE | 2018-04-05 13:12 | ER Document Report ---
ED General - General Chief Complaint: Nausea Stated Complaint: IUD PROBLEMS Time Seen by Provider: 04/05/18 11:30 Notes: 17-year-old female unclear medical history presents to the emergency department for pelvic pain secondary to her IUD, a seizure that occurred this morning, extreme nausea, severe anxiety. She has been seen here recently a couple of times in the last month for similar symptoms. She is from [place] and is staying in [place] for unknown reasons in a hotel by herself. She has a seizure disorder but does not have a neurologist nor has a clear history of being diagnosed with a seizure disorder. She states that she tried to go to see a manager [employer] but because she does not have any money they could not take out her IUD. She is also trying to go to [facility] but was denied for the same reason. Patient with a complicated social history. She does complain of suprapubic abdominal pain. Complains of dysuria, denies urinary frequency or urgency, denies any vaginal discharge. Her primary complaint is her IUD discomfort. TRAVEL OUTSIDE OF THE [place] IN LAST 30 DAYS: No - Related Data Allergies/Adverse Reactions: clozapine [From Clozaril] Allergy (Severe, Verified 02/18/18 13:38) amoxicillin [From Augmentin] Allergy (Verified 02/18/18 13:38) amphetamine [From Adderall] Allergy (Verified 02/18/18 13:38) bupropion [From Wellbutrin] Allergy (Verified 02/18/18 13:38) clavulanic acid [From Augmentin] Allergy (Verified 02/18/18 13:38) dextroamphetamine [From Adderall] Allergy (Verified 02/18/18 13:38) latex Allergy (Verified 02/18/18 13:38) Penicillins Allergy (Verified 02/18/18 13:38) pineapple Allergy (Verified 02/18/18 13:38) trazodone Allergy (Verified 02/18/18 13:38) Past Medical History - Social History Smoking Status: Current Every Day Smoker Chew tobacco use (# tins/day): No Frequency of alcohol use: Occasional Drug Abuse: Marijuana Family History: Reviewed & Not Pertinent Patient has suicidal ideation: No Patient has homicidal ideation: No Pulmonary Medical History: Reports: Hx Asthma, Hx Bronchitis Neurological Medical History: Reports: Hx Seizures Renal/ Medical History: Denies: Hx Peritoneal Dialysis Musculoskeletal Medical History: Reports Hx Arthritis Psychiatric Medical History: Reports: Hx Anxiety, Hx Bipolar Disorder, Hx Depression Past Surgical History: Reports: Hx Oral Surgery, Hx Orthopedic Surgery Review of Systems - Review of Systems Constitutional: See HPI EENT: No symptoms reported Cardiovascular: See HPI Respiratory: See HPI Gastrointestinal: See HPI Genitourinary: See HPI Female Genitourinary: See HPI Musculoskeletal: No symptoms reported Skin: No symptoms reported Hematologic/Lymphatic: No symptoms reported Neurological/Psychological: No symptoms reported Physical Exam - Vital signs Vitals: Temp Pulse Resp BP Pulse Ox 99.1 F 72 16 126/66 H 100 04/05/18 11:00 04/05/18 11:00 04/05/18 11:00 04/05/18 11:04/05/18 11:00 - Notes Notes: PHYSICAL EXAMINATION: Reviewed vital signs and charting by RN GENERAL: Alert. No acute distress. HEAD: Normocephalic, atraumatic. EYES: Pupils equal, round. Extraocular movements intact. ENT: Oral mucosa moist, tongue midline. NECK: Full range of motion. Supple. Trachea midline. LUNGS: Clear to auscultation bilaterally, no wheezes, rales, or rhonchi. No respiratory distress. HEART: Regular rate and rhythm. No murmur ABDOMEN: soft, suprapubic tenderness. Non-distended. Bowel sounds present in all 4 quadrants. no McBurney's point tenderness, no Grijalva sign. EXTREMITIES: Moves all 4 extremities spontaneously. No edema, No cyanosis. NEUROLOGICAL: Alert and oriented. Normal speech. SKIN: Warm, dry, normal turgor. No rashes or lesions noted. Course - Re-evaluation Re-evalutation: 04/05/18 13:13 17-year-old female with social issues presents for request for IUD removal and for seizures. She states that she had a seizure this morning but cannot afford meds or any treatment. Patient is very difficult to ascertain what her chief complaint is as I feel there is a psychiatric component. Patient was alert and oriented during the interview. No evidence of biting of her tongue to indicate seizure, no postictal type state although is been several hours since she claims to have the seizure. She seems more concerned with her abdominal pain and request to get her IUD removed. 04/05/18 15:53 Discussed with patient that we will not remove IUD in the emergency depart and that a pelvic exam is recommended. She requested that a female perform the exam. I asked Dr. Guerrero in the PA student working with her to perform the exam in the agreed. Per their report there were copious amounts of green/yellow discharge with cervical motion tenderness. They were unable to visualize the strings of the IUD. Because of this plan is to obtain a transvaginal ultrasound to ensure her IUD is in place and to make sure that she does not have a TOA or other concerning pathology. Plan is to treat her for PID and she will get 1 dos e of doxycycline and 1 dose of Flagyl here in the emergency department and sent home with prescriptions for each of those for 2 weeks. Also giving her 1 dose of ceftriaxone 250 mg IM. 04/05/18 16:25 Patient did receive her first dose of doxycycline and Flagyl here, also received Rocephin IM x1. Ordered a transvaginal ultrasound to rule out TOA or any concerning pathology. Patient told nurse that she had to leave because she "has a situation ". Nurse came and reported this to me and by the time I went to the room to discuss with her the risks of leaving AGAINST MEDICAL ADVICE she has already eloped. Patient did not leave with her prescriptions for the 2 weeks of doxycycline and Flagyl. Nurse stated that she was going to try to give her a good Rx coupons because patient claims she has no money but patient says she does not have time for that and she is not to get them filled. Follow-up with social work to follow-up with the patient. - Vital Signs Vital signs: Temp Pulse Resp BP Pulse Ox 99.1 F 72 16 126/66 H 100 04/05/18 11:00 04/05/18 11:00 04/05/18 11:00 04/05/18 11:00 04/05/18 11:00 - Laboratory Result Diagrams: 04/05/18 11:45 04/05/18 11:45 Laboratory results interpreted by me: 04/05/18 04/05/18 11:45 11:45 Glucose 112 H Urine Blood SMALL H Ur Leukocyte Esterase LARGE H Discharge - Discharge Clinical Impression: Pelvic inflammatory disease UTI (urinary tract infection) Qualifiers: Urinary tract infection type: acute cystitis Hematuria presence: without hematuria Qualified Code(s): N30.00 - Acute cystitis without hematuria Condition: Stable Disposition: ELOPED Prescriptions: Doxycycline Hyclate 100 mg PO BID 14 Days #28 tablet. Metronidazole [Flagyl 500 mg Tablet] 500 mg PO BID 14 Days #28 tablet
[2018-04-05] MEDS ORDERED: DOXYCYCLINE HYCLATE 100 MG TABLET PO ONE (15:48)
[2018-04-05 15:50] LABS: BACTERIA (WET MOUNT) 3+ BACTERIA SEEN; EPITHELIALS (WET MOUNT) 3+ EPITHELIALS SEEN; RBCS (WET MOUNT) NO RBCS SEEN; T.VAGINALIS (WET MOUNT) NO TRICHOMONAS SEEN; WBCS (WET MOUNT) 3+ WBCS SEEN; YEAST (WET MOUNT) NO YEAST SEEN
[2018-04-05] MEDS ORDERED: CEFTRIAXONE INJ 250 MG VIAL IM ONE (15:50)
[2018-04-05 17:46] LABS: CHLAM PCR DETECTED (NOT DETECT); GON PCR NOT DETECTED (NOT DETECT)
== END 2018-04-05 16:36 | disposition left against medical advice (07) ==
LOC: ER 10:36
DX: N30.00 Acute cystitis without hematuria (principal); N73.9 Female pelvic inflammatory disease, unspecified; R11.0 Nausea; R10.2 Pelvic and perineal pain; R56.9 Unspecified convulsions; F41.9 Anxiety disorder, unspecified
CPT/HCPCS: 99284; 96372; 36415; 87210; 83690; 83735; 84703; 85025; 80053; 81001; 87491; 87591; J0696

== ENCOUNTER 2018-04-08 13:10 | Emergency (ER) | payer SELFPAY ==
[2018-04-08 13:44] VITALS: BP 107/66
[2018-04-08] MEDS ORDERED: ONDANSETRON 4 MG TAB.RAPDIS PO ONE (14:48)
[2018-04-08] MEDS ORDERED: AZITHROMYCIN 1 GM SUSP PACKET PO ONE (14:48)
--- NOTE | 2018-04-08 14:49 | ER Document Report ---
ED Medical Screen (RME) - General Chief Complaint: Nausea/Vomiting Stated Complaint: NAUSEA,SEIZURES Time Seen by Provider: 04/08/18 14:46 Notes: 17-year-old female patient seen here a few days ago but the left AMA. Diagnosed with chlamydia. Had a shot of Rocephin and 1 doxycycline. States that she cannot afford the doxycycline. Still having worsening pain in the pelvic area. Wants to be rechecked. I have greeted and performed a rapid initial assessment of this patient. A comprehensive ED assessment and evaluation of the patient, analysis of test results and completion of the medical decision making process will be conducted by additional ED providers. TRAVEL OUTSIDE OF THE [place] IN LAST 30 DAYS: No - Related Data Allergies/Adverse Reactions: clozapine [From Clozaril] Allergy (Severe, Verified 04/08/18 13:13) amoxicillin [From Augmentin] Allergy (Verified 04/08/18 13:13) amphetamine [From Adderall] Allergy (Verified 04/08/18 13:13) bupropion [From Wellbutrin] Allergy (Verified 04/08/18 13:13) clavulanic acid [From Augmentin] Allergy (Verified 04/08/18 13:13) dextroamphetamine [From Adderall] Allergy (Verified 04/08/18 13:13) latex Allergy (Verified 04/08/18 13:13) Penicillins Allergy (Verified 04/08/18 13:13) pineapple Allergy (Verified 04/08/18 13:13) trazodone Allergy (Verified 04/08/18 13:13) Past Medical History - Social History Frequency of alcohol use: Occasional Drug Abuse: Marijuana Pulmonary Medical History: Reports: Hx Asthma, Hx Bronchitis Neurological Medical History: Reports: Hx Seizures Renal/ Medical History: Denies: Hx Peritoneal Dialysis Musculoskeltal Medical History: Reports Hx Arthritis Psychiatric Medical History: Reports: Hx Anxiety, Hx Bipolar Disorder, Hx Depression Past Surgical History: Reports: Hx Oral Surgery, Hx Orthopedic Surgery Physical Exam - Vital signs Vitals: Temp Pulse Resp BP Pulse Ox 99.2 F 76 20 107/66 100 04/08/18 13:42 04/08/18 13:42 04/08/18 13:42 04/08/18 13:42 04/08/18 13:42 Course - Vital Signs Vital signs: Temp Pulse Resp BP Pulse Ox 99.2 F 76 20 107/66 100 04/08/18 13:42 04/08/18 13:42 04/08/18 13:42 04/08/18 13:42 04/08/18 13:42
[2018-04-08 15:35] LABS: APPEARANCE,URINE SLIGHTLY-CLOUDY; BILIRUBIN,URINE NEGATIVE (NEGATIVE); COLOR,URINE YELLOW; GLUCOSE, URINE NEGATIVE (NEGATIVE); KETONES,URINE NEGATIVE (NEGATIVE); LEUKOCYTE ESTERASE,URINE SMALL (NEGATIVE); NITRITE,URINE NEGATIVE (NEGATIVE); PROTEIN,URINE NEGATIVE (NEGATIVE); URINE SPECIFIC GRAVITY 1.021; UROBILINOGEN,URINE NEGATIVE mg/dL (<2.0)
--- NOTE | 2018-04-08 16:11 | ER Document Report ---
ED General - General Chief Complaint: Nausea/Vomiting Stated Complaint: NAUSEA,SEIZURES Time Seen by Provider: 04/08/18 14:46 Primary Care Provider: [facility] [Provider Group] - Follow up as needed Mode of Arrival: Ambulatory Information source: Patient Notes: This is a 17-year-old female who presents to the emergency room as a call back for positive chlamydia. Patient presented with lower pelvic cramping for the last several days. She does have chronic nausea. She does have a significant history for anxiety, depression, eating disorder as well as "stress-induced seizures". Patient is sexually active. TRAVEL OUTSIDE OF THE [place] IN LAST 30 DAYS: No - HPI Onset: Other - Past month Onset/Duration: Gradual Quality of pain: No pain Severity: None Pain Level: Denies Associated symptoms: Nausea - Patient states her nausea is chronic. denies: Chest pain, Fever, Shortness of breath Exacerbated by: Denies Relieved by: Denies Similar symptoms previously: Yes Recently seen / treated by doctor: Yes - Related Data Allergies/Adverse Reactions: clozapine [From Clozaril] Allergy (Severe, Verified 04/08/18 13:13) amoxicillin [From Augmentin] Allergy (Verified 04/08/18 13:13) amphetamine [From Adderall] Allergy (Verified 04/08/18 13:13) bupropion [From Wellbutrin] Allergy (Verified 04/08/18 13:13) clavulanic acid [From Augmentin] Allergy (Verified 04/08/18 13:13) dextroamphetamine [From Adderall] Allergy (Verified 04/08/18 13:13) latex Allergy (Verified 04/08/18 13:13) Penicillins Allergy (Verified 04/08/18 13:13) pineapple Allergy (Verified 04/08/18 13:13) trazodone Allergy (Verified 04/08/18 13:13) Past Medical History - General Information source: Patient - Social History Smoking Status: Current Every Day Smoker Cigarette use (# per day): Yes Chew tobacco use (# tins/day): No Frequency of alcohol use: Occasional Drug Abuse: Marijuana Lives with: Family Family History: Reviewed & Not Pertinent Patient has suicidal ideation: No Patient has homicidal ideation: No - Past Medical History Cardiac Medical History: Reports: None Pulmonary Medical History: Reports: Hx Asthma, Hx Bronchitis Neurological Medical History: Reports: Hx Seizures - Patient describes his seizures has stress-induced seizures. Renal/ Medical History: Denies: Hx Peritoneal Dialysis Musculoskeletal Medical History: Reports Hx Arthritis Psychiatric Medical History: Reports: Hx Anxiety, Hx Bipolar Disorder, Hx Depression Past Surgical History: Reports: Hx Oral Surgery, Hx Orthopedic Surgery Review of Systems - Review of Systems Constitutional: denies: Chills, Fever EENT: No symptoms reported Cardiovascular: No symptoms reported. denies: Chest pain, Palpitations, Heart racing Respiratory: No symptoms reported Gastrointestinal: denies: Abdominal pain Genitourinary: See HPI Female Genitourinary: See HPI Musculoskeletal: No symptoms reported Skin: No symptoms reported Hematologic/Lymphatic: No symptoms reported Neurological/Psychological: See HPI Physical Exam - Vital signs Vitals: Temp Pulse Resp BP Pulse Ox 99.2 F 76 20 107/66 100 04/08/18 13:42 04/08/18 13:42 04/08/18 13:42 04/08/18 13:42 04/08/18 13:42 Notes: Physical exam: GENERAL: She is alert and oriented x3, no acute distress HEAD: Atraumatic, normocephalic. EYES: Pupils equal round and reactive to light, extraocular movements intact, sclera anicteric, conjunctiva are normal. ENT: TMs normal, nares patent, oropharynx clear without exudates. Moist mucous membranes. NECK: Normal range of motion, supple without obvious mass or JVD. LUNGS: Breath sounds clear to auscultation bilaterally and equal. No wheezes rales or rhonchi. HEART: Regular rate and rhythm without murmurs, rubs or gallops. ABDOMEN: Soft, normoactive bowel sounds. No tenderness to palpation. No guarding, no rebound. No masses appreciated. Pelvic: Patient refused at this time. She states she had one 3 days ago and does not want one now (she is fairly adamant about it). However, her abdomen is very soft and there is no lower pelvic pain on abdominal exam. EXTREMITIES: Normal range of motion, no pitting or edema. No clubbing or cyanosis. NEUROLOGICAL: Cranial nerves II through XII grossly intact. Normal speech, moving all extremities. PSYCH: Normal mood, normal affect. SKIN: Warm, Dry, normal turgor, no rashes or lesions noted. Course - Re-evaluation Re-evalutation: 04/08/18 23:45 Note: Patient was here for repeat evaluation for chlamydia. She has received treatment with ceftriaxone IM and azithromycin. She states that she was prescribed doxycycline but could not afford the medicine. On repeat evaluation her abdomen was soft and nontender. She refused a pelvic exam. I offered to do a pelvic ultrasound but she refused that as well. She did request Xanax and Topamax for her anxiety and depression. She requested another prescription for doxycycline. She also reported that she had been treated in the past with morphine for her "stress seizures". I explained to her that we will not be giving any narcotics or benzodiazepines. I did give the patient some Topamax and a prescription for doxycycline. I gave her some Zofran to go and the number for the [facility]. 04/08/18 23:46 - Vital Signs Vital signs: Temp Pulse Resp BP Pulse Ox 99.2 F 76 20 107/66 100 04/08/18 13:42 04/08/18 13:42 04/08/18 13:42 04/08/18 13:42 04/08/18 13:42 - Laboratory Laboratory results interpreted by me: 04/08/18 15:13 Ur Leukocyte Esterase SMALL H Discharge - Discharge Clinical Impression: STD Condition: Stable Disposition: HOME, SELF-CARE Additional Instructions: As we discussed, I have written a prescription for the Topamax: Take as directed. Regarding the chlamydia: Take the doxycycline as prescribed. Use the Zofran as needed for nausea. There is a free clinic affiliated with the hospital: It is a [facility]. Call tomorrow for the next available appointment. Prescriptions: Doxycycline Hyclate 100 mg PO BID #20 capsule Topiramate [Topamax 25 mg Tablet] 25 mg PO Q12 #60 tab Referrals: [facility] [Provider Group] - Follow up as needed
[2018-04-08] MEDS ORDERED: ONDANSETRON ODT 4 MG TAB (6 TAB/ER DISP) PO PRN ×2 (17:52→18:03)
== END 2018-04-08 17:58 | disposition home or self-care (01) ==
LOC: ER 13:10
DX: A56.8 Sexually transmitted chlamydial infection of other sites (principal); R11.2 Nausea with vomiting, unspecified; F17.210 Nicotine dependence, cigarettes, uncomplicated; Z88.0 Allergy status to penicillin; Z91.040 Latex allergy status
CPT/HCPCS: 99284; 81025; 81001; S0119; Q0144

== ENCOUNTER 2018-06-06 15:55 | Emergency (ER) | payer MEDICAID ==
[2018-06-06 16:16] VITALS: BP 109/65
--- NOTE | 2018-06-06 16:56 | ER Document Report ---
ED Medical Screen (RME) - General Chief Complaint: Anxiety Stated Complaint: BACK PAIN Time Seen by Provider: 06/06/18 16:39 Mode of Arrival: Ambulatory Information source: Patient Notes: Patient is a 17-year-old female who presents emergency department with multiple complaints today. Patient reports back pain has been ongoing chronically, states worse over the last 2 days. Denies any dysuria or urinary frequency. Patient also reports increased anxiety and concerns over her health. Patient reports significant psych history as charted. Patient concerned she may need IV fluids she vomited earlier today. Patient's vital signs are within normal limits with no evidence of tachycardia or hypotension. Basic labs will be obtained. Exam: Patient alert, oriented and answering all questions. No CVA tenderness. Abdomen soft, nontender. I have greeted and performed a rapid initial assessment of this patient. A comprehensive ED assessment and evaluation of the patient, analysis of test results and completion of the medical decision making process will be conducted by additional ED providers. Dictation of this chart was performed using voice recognition software; therefore, there may be some unintended grammatical errors. TRAVEL OUTSIDE OF THE [place] IN LAST 30 DAYS: No - Related Data Allergies/Adverse Reactions: clozapine [From Clozaril] Allergy (Severe, Verified 04/08/18 13:13) amoxicillin [From Augmentin] Allergy (Verified 04/08/18 13:13) amphetamine [From Adderall] Allergy (Verified 04/08/18 13:13) bupropion [From Wellbutrin] Allergy (Verified 04/08/18 13:13) clavulanic acid [From Augmentin] Allergy (Verified 04/08/18 13:13) dextroamphetamine [From Adderall] Allergy (Verified 04/08/18 13:13) latex Allergy (Verified 04/08/18 13:13) Penicillins Allergy (Verified 04/08/18 13:13) pineapple Allergy (Verified 04/08/18 13:13) shellfish derived Allergy (Verified 06/06/18 15:57) trazodone Allergy (Verified 04/08/18 13:13) Past Medical History - General Information source: Patient Pulmonary Medical History: Reports: Hx Asthma, Hx Bronchitis Neurological Medical History: Reports: Hx Seizures - Patient describes his seizures has stress-induced seizures. Renal/ Medical History: Denies: Hx Peritoneal Dialysis Musculoskeltal Medical History: Reports Hx Arthritis Psychiatric Medical History: Reports: Hx Anxiety, Hx Attention Deficit Hyperactivity Disorder, Hx Bipolar Disorder, Hx Borderline Personality Disorder, Hx Depression, Hx Obsessive Compulsive Disorder, Hx Post Traumatic Stress Disorder Past Surgical History: Reports: Hx Oral Surgery, Hx Orthopedic Surgery Physical Exam - Vital signs Vitals: Temp Pulse Resp BP Pulse Ox 98.6 F 87 16 109/65 98 06/06/18 16:14 06/06/18 16:14 06/06/18 16:14 06/06/18 16:14 06/06/18 16:14 Course - Vital Signs Vital signs: Temp Pulse Resp BP Pulse Ox 98.6 F 87 16 109/65 98 06/06/18 16:14 06/06/18 16:14 06/06/18 16:14 06/06/18 16:14 06/06/18 16:14
[2018-06-06 17:16] LABS: ABSOLUTE EOSINOPHILS # (AUTO) 0.1 10^3/uL (0.0-0.6); ABSOLUTE LYMPHOCYTES (AUTO) 1.2 10^3/uL (0.5-4.7); ABSOLUTE MONOCYTES (AUTO) 0.7 10^3/uL (0.1-1.4); ABSOLUTE NEUT (AUTO) 4.7 10^3/uL (1.7-8.2); BASOPHILS % (AUTO) 0.6 % (0-2); EOSINOPHILS % (AUTO) 1.9 % (0-6); HEMOGLOBIN 15.8 g/dL (12.0-15.5); LYMPHOCYTES % (AUTO) 18.1 % (13-45); MEAN CORPUSCULAR HGB CONC 35.1 g/dL (32.0-36.0); MEAN CORPUSCULAR VOLUME 91 fl (80-97); MONOCYTES % (AUTO) 10.7 % (3-13); PLATELET COUNT 190 10^3/uL (150-450); RED BLOOD COUNT 4.94 10^6/uL (3.72-5.28); RED CELL DISTRIBUTION WIDTH 12.7 % (11.5-14.0); SEGMENTED NEUTROPHILS % (AUTO) 68.7 % (42-78); TOTAL CELLS COUNTED % (AUTO) 100 %; WHITE BLOOD COUNT 6.8 10^3/uL (4.0-10.5)
[2018-06-06 17:34] LABS: ALANINE AMINOTRANSFERASE 17 U/L (5-35); ALBUMIN 5.1 g/dL (3.7-5.6); ALKALINE PHOSPHATASE 88 U/L (50-135); ANION GAP 12 (5-19); ASPARTATE AMINO TRANSFERASE 23 U/L (5-30); BILIRUBIN,DIRECT 0.4 mg/dL (0.0-0.4); BILIRUBIN,TOTAL 1.7 mg/dL (0.2-1.3); BLOOD UREA NITROGEN 14 mg/dL (7-20); CALCIUM 9.9 mg/dL (8.4-10.2); CARBON DIOXIDE 27 mmol/L (22-30); CHLORIDE 104 mmol/L (98-107); GLUCOSE 74 mg/dL (75-110); POTASSIUM 4.4 mmol/L (3.6-5.0); SODIUM 142.8 mmol/L (137-145); TOTAL PROTEIN 8.6 g/dL (6.3-8.2)
== END 2018-06-06 18:59 | disposition left against medical advice (07) ==
LOC: ER 15:55
DX: Z53.21 Procedure and treatment not carried out due to patient leaving prior to being seen by health care provider (principal); F41.9 Anxiety disorder, unspecified; M54.9 Dorsalgia, unspecified; R11.10 Vomiting, unspecified; J45.909 Unspecified asthma, uncomplicated
CPT/HCPCS: 36415; 80053; 85025; 99281

== ENCOUNTER 2019-03-21 05:09 | Emergency (ER) | payer MEDICAID ==
[2019-03-21 05:42] VITALS: BP 114/78
[2019-03-21] MEDS ORDERED: ONDANSETRON 4 MG TAB.RAPDIS PO ONE (06:47)
[2019-03-21 07:15] LABS: ABSOLUTE LYMPHOCYTES (AUTO) 1.1 10^3/uL (0.5-4.7); ABSOLUTE MONOCYTES (AUTO) 0.5 10^3/uL (0.1-1.4); ABSOLUTE NEUT (AUTO) 8.3 10^3/uL (1.7-8.2); BASOPHILS % (AUTO) 0.3 % (0-2); EOSINOPHILS % (AUTO) 0.2 % (0-6); HEMATOCRIT 42.7 % (36.0-47.0); HEMOGLOBIN 14.8 g/dL (12.0-15.5); LYMPHOCYTES % (AUTO) 11.2 % (13-45); MEAN CORPUSCULAR HEMOGLOBIN 30.9 pg (27.0-33.4); MEAN CORPUSCULAR HGB CONC 34.7 g/dL (32.0-36.0); MEAN CORPUSCULAR VOLUME 89 fl (80-97); MONOCYTES % (AUTO) 5.4 % (3-13); PLATELET COUNT 183 10^3/uL (150-450); RED CELL DISTRIBUTION WIDTH 12.7 % (11.5-14.0); SEGMENTED NEUTROPHILS % (AUTO) 82.9 % (42-78); TOTAL CELLS COUNTED % (AUTO) 100 %
[2019-03-21 07:34] LABS: ACETAMINOPHEN < 10 ug/mL (10-30); ALBUMIN 4.8 g/dL (3.5-5.0); ALCOHOL < 10 mg/dL (NONE DETECTED); ALKALINE PHOSPHATASE 83 U/L (38-126); ANION GAP 14 (5-19); ASPARTATE AMINO TRANSFERASE 16 U/L (14-36); BILIRUBIN,DIRECT 0.2 mg/dL (0.0-0.4); BILIRUBIN,TOTAL 1.1 mg/dL (0.2-1.3); BLOOD UREA NITROGEN 8 mg/dL (7-20); CALCIUM 9.7 mg/dL (8.4-10.2); CARBON DIOXIDE 23 mmol/L (22-30); CHLORIDE 105 mmol/L (98-107); GLUCOSE 119 mg/dL (75-110); POTASSIUM 3.8 mmol/L (3.6-5.0); SALICYLATE < 1.0 mg/dL (2.0-20.0); TOTAL PROTEIN 7.9 g/dL (6.3-8.2)
[2019-03-21 08:05] LABS: APPEARANCE,URINE SLIGHTLY-CLOUDY; BILIRUBIN,URINE NEGATIVE (NEGATIVE); COLOR,URINE YELLOW; GLUCOSE, URINE NEGATIVE (NEGATIVE); KETONES,URINE 20 mg/dL (NEGATIVE); LEUKOCYTE ESTERASE,URINE TRACE (NEGATIVE); NITRITE,URINE NEGATIVE (NEGATIVE); PROTEIN,URINE 30 mg/dL (NEGATIVE); URINE SPECIFIC GRAVITY 1.029
[2019-03-21 08:19] LABS: URINE AMPHETAMINES SCREEN NEGATIVE; URINE BARBITURATES SCREEN NEGATIVE; URINE BENZODIAZEPINES SCREEN NEGATIVE; URINE COCAINE SCREEN NEGATIVE; URINE METHADONE SCREEN NEGATIVE; URINE PHENCYCLIDINE SCREEN NEGATIVE
[2019-03-21 08:20] LABS: URINE MARIJUANA (THC) SCREEN UNCONFIRMED POSITIVE
--- NOTE | 2019-03-21 09:44 | PSYCHOLOGICAL NOTE ---
Psych Note - Psych Note Date seen by psych provider: 03/21/19 Time seen by psych provider: 07:20 Psych Note: Reason for consult: Anxiety Patient is a 18 year old female who presents to ED via POV with chief complaint of anxiety and nausea. Patient states she has an extensive mental health history. Patient states the "only" medication that "helps with" anxiety is Thorazine. Patient anxiety related to financial stressors and medical concerns. 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 Patient states she starts a new job today at [employer] in [place]. Patient spoke of frequent phone calls to "[facility]" as a substitute for mental health services. Patient states she attempted to "commit myself to [facility]" 2-3 months ago but was sent home and told "nothing is wrong with me." Patient reports strained relationships with boyfriend's family Patient reports an history of substance abuse with "drugs and alcohol" but has been sober for 11 months. Patient requested her "therapy puppy come in an visit." Clinician asked patient what her expectations are with his ED visit. Patient responded, "just to talk." Patient is requesting Throazine. Clinician informed patient that this ED does not administer Thorazine for anxiety. Clinician overheard telling pedro on the phone that she "has no idea why she has to wait on psych" that she did not ask for a psych consult. Heladioienedgar was supposed to start a job today at 7am. Clinician discussed working a plan of action instead of attempting to put others responsible for her wellbeing. Clinician notes limited insight. Patient requested to speak with clinician. Patient expressed a desire to leave AMA. Patient states that boyfrienedgar is anxious about getting to his new job, at which she had to be at orientation for his new job at 7 AM. Clinician elaborated on that comment with patient. Clinician stated that is understandable due to their being no income in the family and being later for orientation at a big company like [employer] could result in his termination before he event begins. Patient replied with a comment about being provided with "6 Zofran last time I was here." Patient is alert and oriented to person, place, time and circumstance. Mood is normal with congruent affect. Patient denies suicidal and homicidal ideations. Delusions are absent and behavior is congruent with an intact reality based presentation (i.e.: organized and linear through processes). There is no observed behavior that suggests patient is responding to internal stimuli. Patient denies auditory and visual hallucinations. Eye contact is appropriate. Conversational speech is within normal rate, tone, and prosody. Intellectual ability appears to be within average range. Attention and concentration are good. Insight, judgment and impulse control are currently poor. Impression/Plan: Patient is cleared from acute psychiatric services. Patient denies suicidal and homicidal ideation. Patient denies auditory and visual hallucinations.There is no observed behavior that suggests patient is responding to internal stimuli. Cluster B traits noted. Patient was provided patient with outpatient mental health resource list and street sheet resource. Patient elected to leave [facility]. Dr. Lebron was consulted on the care and management of this patient; attending physician is in agreement with recommendations and disposition.
--- NOTE | 2019-03-21 10:12 | EKG REPORT ---
SEVERITY:- OTHERWISE NORMAL ECG - SINUS TACHYCARDIA : Confirmed by: Rose Hester MD 21-Mar-2019 10:12:03
--- NOTE | 2019-03-21 11:16 | ER Document Report ---
Entered by ANASTASIIA AVILES SCRIBE 03/21/19 0635 Acting as scribe for:ADRIANA PAGAN IV, MD ED Psych Disorder / Suicide - General Chief Complaint: Psych Problem Stated Complaint: ANXIETY/VOMITING/ABDOMINAL PAIN xMONTHS Time Seen by Provider: 03/21/19 06:29 Mode of Arrival: Ambulatory Information source: Patient Notes: This 18 year old female patient presents to the emergency department today with complaints of "anxiety and nausea". Patient has an extensive psychiatric history and is requesting zofran and thorazine. Patient states that she has been seen by psych multiple times in the past for anxiety and they "just give her a script but I can't afford to get them filled. Of note, patient has been living with her significant other at a hotel nightly. Patient is tearful and anxious. Patient complains of vomiting. TRAVEL OUTSIDE OF THE [place] IN LAST 30 DAYS: No - Related Data Allergies/Adverse Reactions: clozapine [From Clozaril] Allergy (Severe, Verified 04/08/18 13:13) amoxicillin [From Augmentin] Allergy (Verified 04/08/18 13:13) amphetamine [From Adderall] Allergy (Verified 04/08/18 13:13) bupropion [From Wellbutrin] Allergy (Verified 04/08/18 13:13) clavulanic acid [From Augmentin] Allergy (Verified 04/08/18 13:13) dextroamphetamine [From Adderall] Allergy (Verified 04/08/18 13:13) latex Allergy (Verified 04/08/18 13:13) Penicillins Allergy (Verified 04/08/18 13:13) pineapple Allergy (Verified 04/08/18 13:13) shellfish derived Allergy (Verified 06/06/18 15:57) trazodone Allergy (Verified 04/08/18 13:13) Home Medications: hydroxyzine. abilify. zoloft. clonzapam Past Medical History - General Information source: Patient - Social History Smoking Status: Current Some Day Smoker Cigarette use (# per day): Yes Drug Abuse: Marijuana Lives with: Family Family History: Reviewed & Not Pertinent Patient has suicidal ideation: No Patient has homicidal ideation: No Pulmonary Medical History: Reports: Hx Asthma, Hx Bronchitis Neurological Medical History: Reports: Hx Seizures - Patient describes his seizures has stress-induced seizures. Musculoskeletal Medical History: Reports Hx Arthritis Psychiatric Medical History: Reports: Hx Anxiety, Hx Attention Deficit Hyper activity Disorder, Hx Bipolar Disorder, Hx Borderline Personality Disorder, Hx Depression, Hx Obsessive Compulsive Disorder, Hx Post Traumatic Stress Disorder Past Surgical History: Reports: Hx Oral Surgery, Hx Orthopedic Surgery Review of Systems - Review of Systems Constitutional: No symptoms reported EENT: No symptoms reported Cardiovascular: No symptoms reported Respiratory: No symptoms reported Gastrointestinal: See HPI, Nausea, Vomiting Genitourinary: No symptoms reported Female Genitourinary: No symptoms reported Musculoskeletal: No symptoms reported Skin: No symptoms reported Hematologic/Lymphatic: No symptoms reported Neurological/Psychological: See HPI, Anxiety, Other - tearful. denies: Homicidal ideation, Suicidal ideation -: Yes All other systems reviewed and negative Physical Exam - Vital signs Vitals: Temp Pulse Resp BP Pulse Ox 97.8 F 96 16 114/78 96 03/21/19 05:33 03/21/19 05:33 03/21/19 05:33 03/21/19 05:33 03/21/19 05:33 - General General appearance: Appears well, Alert In distress: None Notes: Reports being unable to afford any medication but does have elaborate finger nails - HEENT Head: Normocephalic, Atraumatic Eyes: Normal - Respiratory Respiratory status: No respiratory distress - Cardiovascular Rhythm: Regular Heart sounds: Normal auscultation Murmur: No - Abdominal Inspection: Normal Distension: No distension - Extremities General upper extremity: Normal inspection. No: Edema General lower extremity: Normal inspection. No: Edema - Neurological Neuro grossly intact: Yes Cognition: Normal Orientation: AAOx4 - Psychological Associated symptoms: Anxious, Tearful - Skin Skin Temperature: Warm Skin Moisture: Dry Skin Color: Normal Course - Re-evaluation Re-evalutation: 03/21/19 11:17 this md informed by psych nurse pt left ama at 0747 - Vital Signs Vital signs: Temp Pulse Resp BP Pulse Ox 97.8 F 96 16 114/78 96 03/21/19 05:33 03/21/19 05:33 03/21/19 05:33 03/21/19 05:33 03/21/19 05:33 - Laboratory Result Diagrams: 03/21/19 06:55 03/21/19 06:55 Laboratory results interpreted by me: 03/21/19 03/21/1920 05:55 06:55 06:55 Lymph % (Auto) 11.2 L Absolute Neuts (auto) 8.3 H Seg Neutrophils % 82.9 H Glucose 119 H Urine Protein 30 H Urine Ketones 20 H Urine Urobilinogen 2.0 H Ur Leukocyte Esterase TRACE H Salicylates < 1.0 L Acetaminophen < 10 L Discharge - Discharge Clinical Impression: Anxiety, Nausea Condition: Stable Disposition: AGAINST MEDICAL ADVICE Instructions: Anxiety ([facility]) I personally performed the services described in the documentation, reviewed and edited the documentation which was dictated to the scribe in my presence, and it accurately records my words and actions.
== END 2019-03-21 09:45 | disposition left against medical advice (07) ==
LOC: ER 05:09
DX: F41.9 Anxiety disorder, unspecified (principal); R11.2 Nausea with vomiting, unspecified; R10.9 Unspecified abdominal pain; Z88.8 Allergy status to other drugs, medicaments and biological substances; F17.210 Nicotine dependence, cigarettes, uncomplicated; J45.909 Unspecified asthma, uncomplicated
CPT/HCPCS: 93005; 99284; 36415; 80307 ×4; 84703; 85025; 80053; 81001; 93010; S0119

== ENCOUNTER 2019-10-10 04:56 | Emergency (ER) | payer MEDICAID ==
[2019-10-10 05:12] VITALS: BP 123/61
[2019-10-10 06:48] LABS: ALBUMIN 4.6 g/dL (3.5-5.0); ALKALINE PHOSPHATASE 78 U/L (38-126); ANION GAP 9 (5-19); ASPARTATE AMINO TRANSFERASE 17 U/L (14-36); BILIRUBIN,TOTAL 1.1 mg/dL (0.2-1.3); BLOOD UREA NITROGEN 10 mg/dL (7-20); CALCIUM 9.5 mg/dL (8.4-10.2); CARBON DIOXIDE 21 mmol/L (22-30); CHLORIDE 108 mmol/L (98-107); GLUCOSE 127 mg/dL (75-110); POTASSIUM 3.8 mmol/L (3.6-5.0); TOTAL PROTEIN 7.8 g/dL (6.3-8.2)
[2019-10-10 06:49] LABS: ABSOLUTE LYMPHOCYTES (AUTO) 1.3 10^3/uL (0.5-4.7); ABSOLUTE MONOCYTES (AUTO) 0.6 10^3/uL (0.1-1.4); ABSOLUTE NEUT (AUTO) 10.7 10^3/uL (1.7-8.2); BASOPHILS % (AUTO) 0.2 % (0-2); EOSINOPHILS % (AUTO) 0.2 % (0-6); HEMATOCRIT 43.6 % (36.0-47.0); HEMOGLOBIN 15.2 g/dL (12.0-15.5); LYMPHOCYTES % (AUTO) 10.1 % (13-45); MEAN CORPUSCULAR HEMOGLOBIN 30.4 pg (27.0-33.4); MEAN CORPUSCULAR HGB CONC 34.8 g/dL (32.0-36.0); MEAN CORPUSCULAR VOLUME 88 fl (80-97); MONOCYTES % (AUTO) 4.4 % (3-13); PLATELET COUNT 199 10^3/uL (150-450); RED BLOOD COUNT 4.98 10^6/uL (3.72-5.28); RED CELL DISTRIBUTION WIDTH 12.2 % (11.5-14.0); SEGMENTED NEUTROPHILS % (AUTO) 85.1 % (42-78); TOTAL CELLS COUNTED % (AUTO) 100 %; WHITE BLOOD COUNT 12.5 10^3/uL (4.0-10.5)
[2019-10-10] MEDS ORDERED: FAMOTIDINE INJ/PF 20 MG/2 ML SDV IV ONE (08:06)
[2019-10-10] MEDS ORDERED: NORMAL SALINE 1000 ML 1,000 ML IV PRN (08:07)
[2019-10-10] MEDS ORDERED: METOCLOPRAMIDE HCL INJ/PF 10 MG/2 ML SDV IV ONE (08:07)
--- NOTE | 2019-10-10 08:13 | ER Document Report ---
ED General - General Chief Complaint: Nausea/Vomiting Stated Complaint: ABDOMINAL PIAN Time Seen by Provider: 10/10/19 06:47 TRAVEL OUTSIDE OF THE [place] IN LAST 30 DAYS: No - HPI Notes: Chief complaint: "I am having nausea and vomiting, my breasts are sore, I vomited up a few streaks of bright red blood this morning and I am over a week late for my period" History of present illness: 19-year-old female nulligravida presenting with symptoms as noted above. Currently not on contraception states she wishes to become . No regular medications. Multiple drug allergies as noted by nursing staff. Patient smokes 1 pack/day. Rare social alcohol consumption. Occasional use of marijuana. Denies any known history of peptic ulcer disease. No prior abdominal surgery. No dysuria. No fever chills. 1 loose stool this morning. No melena. Weight is stable. Intermittent nausea for several days. Vomiting just started this morning. She describes burning epigastric discomfort about 4/10 intensity. No history of liver biliary tract disease. - Related Data Allergies/Adverse Reactions: clozapine [From Clozaril] Allergy (Severe, Verified 04/08/18 13:13) amoxicillin [From Augmentin] Allergy (Verified 04/08/18 13:13) amphetamine [From Adderall] Allergy (Verified 04/08/18 13:13) bupropion [From Wellbutrin] Allergy (Verified 04/08/18 13:13) clavulanic acid [From Augmentin] Allergy (Verified 04/08/18 13:13) dextroamphetamine [From Adderall] Allergy (Verified 04/08/18 13:13) latex Allergy (Verified 04/08/18 13:13) Penicillins Allergy (Verified 04/08/18 13:13) pineapple Allergy (Verified 04/08/18 13:13) shellfish derived Allergy (Verified 06/06/18 15:57) trazodone Allergy (Verified 04/08/18 13:13) Past Medical History - General Information source: Patient, [facility] Records - Social History Smoking Status: Current Every Day Smoker Frequency of alcohol use: Rare Drug Abuse: Marijuana Lives with: Spouse/Significant other Family History: Reviewed & Not Pertinent Patient has homicidal ideation: No - Past Medical History Cardiac Medical History: Reports: None Pulmonary Medical History: Reports: Hx Asthma, Hx Bronchitis Neurological Medical History: Reports: Hx Seizures - Patient describes his seizures has stress-induced seizures. Endocrine Medical History: Denies: Hx Diabetes Mellitus Type 1, Hx Diabetes Mellitus Type 2 Renal/ Medical History: Denies: Hx Peritoneal Dialysis GI Medical History: Reports: None Musculoskeletal Medical History: Reports Hx Arthritis Psychiatric Medical History: Reports: Hx Anxiety, Hx Attention Deficit Hyperactivity Disorder, Hx Bipolar Disorder, Hx Borderline Personality Disorder, Hx Depression, Hx Obsessive Compulsive Disorder, Hx Post Traumatic Stress Disorder Past Surgical History: Reports: Hx Oral Surgery, Hx Orthopedic Surgery Review of Systems - Review of Systems Notes: Constitutional: Negative for fever. HENT: Negative for sore throat. Eyes: Negative for visual changes. Cardiovascular: Negative for chest pain. Respiratory: Negative for shortness of breath. Gastrointestinal: As per HPI. Genitourinary: As per HPI. Musculoskeletal: Negative for back pain. Skin: Negative for rash. Neurological: Negative for headaches, weakness or numbness. 10 point ROS negative except as marked above and in HPI. Physical Exam - Vital signs Vitals: Temp Pulse Resp BP Pulse Ox 98.3 F 88 16 123/61 98 10/10/19 05:09 10/10/19 05:09 10/10/19 05:09 10/10/19 05:09 10/10/19 05:09 - Notes Notes: GENERAL: Well-developed well-nourished female patient of approximately stated age appearing in no acute distress. SKIN: Good turgor. Grade 1 facial acne. HEAD: Normocephalic atraumatic. EYES: PERRLA. EOMI. Conjunctivae and sclerae clear. EARS: CANALS AND TMS CLEAR. NOSE: CLEAR. MOUTH: Moist mucosa. Good dentition. No stridor or edema. No drooling. NECK: Supple. No masses or thyromegaly. No adenopathy. Carotids 2+ without bruits. No JVD. BACK: Symmetrical without tenderness. CHEST: Respirations unlabored. Breath sounds clear and symmetrical. HEART: Regular rhythm. No murmur gallop or rub. ABDOMEN: Mild epigastric tenderness. Soft without masses, organomegaly or rebound. Bowel sounds normally active. No bruits. GENITALIA: Deferred. EXTREMITIES: No edema. No calf tenderness. Cap refill less than 1.5 seconds. Dorsalis pedis and posterior tibial pulses 3+ and symmetrical. NEUROLOGICAL: GCS 15. Alert and oriented x3. Normal gait. Fluent speech. Cranial nerves II through XII intact. Sensorimotor and cerebellar normal. Normal tone. PSYCHIATRIC: Appropriate affect. Course - Re-evaluation Re-evalutation: 10/10/19 08:37 Patient symptoms are highly suggestive of early . We have collected a urine for testing and results remain pending. CBC and comprehensive metabolic profile are normal. Patient received a liter of normal saline. We also gave her some IV Pepcid and Reglan. She is just given us the urine specimen. We are still waiting for results of test. Patient has decided that she feels better and wants to leave. She chooses to sign out AMA. I think she has adequate capacity to decline care at this time and she will sign out AMA. - Vital Signs Vital signs: Temp Pulse Resp BP Pulse Ox 98.3 F 88 16 123/61 98 10/10/19 05:09 10/10/19 05:09 10/10/19 05:09 10/10/19 05:09 10/10/19 05:09 - Laboratory Result Diagrams: 10/10/19 06:00 10/10/19 06:00 Laboratory results interpreted by me: 10/10/19 10/10/19 06:00 06:00 WBC 12.5 H Lymph % (Auto) 10.1 L Absolute Neuts (auto) 10.7 H Seg Neutrophils % 85.1 H Chloride 108 H Carbon Dioxide 21 L Glucose 127 H Discharge - Discharge Clinical Impression: Vomiting Qualifiers: Vomiting type: unspecified Vomiting Intractability: non-intractable Nausea presence: with nausea Qualified Code(s): R11.2 - Nausea with vomiting, unspecified Disposition: AGAINST MEDICAL ADVICE
[2019-10-10 08:47] LABS: APPEARANCE,URINE SLIGHTLY-CLOUDY; BILIRUBIN,URINE NEGATIVE (NEGATIVE); COLOR,URINE YELLOW; GLUCOSE, URINE NEGATIVE (NEGATIVE); KETONES,URINE 20 mg/dL (NEGATIVE); LEUKOCYTE ESTERASE,URINE NEGATIVE (NEGATIVE); NITRITE,URINE NEGATIVE (NEGATIVE); PROTEIN,URINE NEGATIVE (NEGATIVE); UROBILINOGEN,URINE NEGATIVE mg/dL (<2.0)
== END 2019-10-10 08:40 | disposition left against medical advice (07) ==
LOC: ER 04:56
DX: R11.2 Nausea with vomiting, unspecified (principal); R19.4 Change in bowel habit; R10.816 Epigastric abdominal tenderness; R19.8 Other specified symptoms and signs involving the digestive system and abdomen; F17.200 Nicotine dependence, unspecified, uncomplicated; F12.10 Cannabis abuse, uncomplicated; J45.909 Unspecified asthma, uncomplicated; L70.9 Acne, unspecified; Z88.8 Allergy status to other drugs, medicaments and biological substances; Z88.0 Allergy status to penicillin; Z91.040 Latex allergy status; Z91.018 Allergy to other foods; Z91.013 Allergy to seafood
CPT/HCPCS: 99283; 96374; 96375; 36415; 83690; 84703; 85025; 81025; 80053; 81001; J2765; J7030; S0028

== ENCOUNTER 2019-10-13 03:45 | Emergency (ER) | payer MEDICAID ==
[2019-10-13] MEDS ORDERED: METOCLOPRAMIDE HCL 10 MG TABLET PO ONE (04:09)
--- NOTE | 2019-10-13 04:16 | ER Document Report ---
ED General - General Chief Complaint: Fall Injury Stated Complaint: ABDOMINAL PAIN SECONDARY TO FALL Time Seen by Provider: 10/13/19 04:01 [facility] - Follow up tomorrow Notes: Patient is a 19-year-old female, G1, P0 at around 4 to 5 weeks gestation by last menstrual period, that comes emergency department for chief complaint of a fall with injury. She states that she slipped on her steps and fell forward, she states that her abdomen struck the side of the staircase, she states the area looked red and she was having some cramping pain so she became concerned and came in for evaluation. She states she had a positive test today and has had no evaluation for this otherwise. She denies head injury, chest pain, injury to her extremities, back pain, or any other complaints from the fall. She denies vaginal bleeding. Past medical history of anxiety and bipolar disorder. TRAVEL OUTSIDE OF THE [place] IN LAST 30 DAYS: No - Related Data Allergies/Adverse Reactions: clozapine [From Clozaril] Allergy (Severe, Verified 04/08/18 13:13) amoxicillin [From Augmentin] Allergy (Verified 04/08/18 13:13) amphetamine [From Adderall] Allergy (Verified 04/08/18 13:13) bupropion [From Wellbutrin] Allergy (Verified 04/08/18 13:13) clavulanic acid [From Augmentin] Allergy (Verified 04/08/18 13:13) dextroamphetamine [From Adderall] Allergy (Verified 04/08/18 13:13) latex Allergy (Verified 04/08/18 13:13) Penicillins Allergy (Verified 04/08/18 13:13) pineapple Allergy (Verified 04/08/18 13:13) shellfish derived Allergy (Verified 06/06/18 15:57) trazodone Allergy (Verified 04/08/18 13:13) Past Medical History - General Information source: Patient - Social History Smoking Status: Former Smoker Chew tobacco use (# tins/day): No Frequency of alcohol use: None Drug Abuse: None Lives with: Family Family History: Reviewed & Not Pertinent Pulmonary Medical History: Reports: Hx Asthma, Hx Bronchitis Neurological Medical History: Reports: Hx Seizures - Patient describes his seizures has stress-induced seizures. Endocrine Medical History: Denies: Hx Diabetes Mellitus Type 1, Hx Diabetes Mellitus Type 2 Renal/ Medical History: Denies: Hx Peritoneal Dialysis Musculoskeletal Medical History: Reports Hx Arthritis Psychiatric Medical History: Reports: Hx Anxiety, Hx Attention Deficit Hyperactivity Disorder, Hx Bipolar Disorder, Hx Borderline Personality Disorder, Hx Depression, Hx Obsessive Compulsive Disorder, Hx Post Traumatic Stress Disorder Past Surgical History: Reports: Hx Oral Surgery, Hx Orthopedic Surgery - Immunizations Hx Diphtheria, Pertussis, Tetanus Vaccination: Yes Review of Systems - Review of Systems Constitutional: No symptoms reported EENT: No symptoms reported Cardiovascular: No symptoms reported Respiratory: No symptoms reported Gastrointestinal: See HPI Genitourinary: No symptoms reported Female Genitourinary: See HPI Musculoskeletal: No symptoms reported Skin: No symptoms reported Hematologic/Lymphatic: No symptoms reported Neurological/Psychological: No symptoms reported Physical Exam - Vital signs Vitals: Temp 98.5 F 10/13/19 03:54 - Notes Notes: GENERAL: Alert, interacts well. No acute distress. HEAD: Normocephalic, atraumatic. EYES: Pupils equal, round, and reactive to light. Extraocular movements intact. ENT: Oral mucosa moist, tongue midline. Oropharynx unremarkable. Airway patent. NECK: Full range of motion. Supple. Trachea midline. No lymphadenopathy. LUNGS: Clear to auscultation bilaterally, no wheezes, rales, or rhonchi. No respiratory distress. Non-tender chest wall. HEART: Regular rate and rhythm. No murmur ABDOMEN: Soft, non-tender. Non-distended. Bowel sounds present in all 4 quadrants. No signs of trauma. EXTREMITIES: Moves all 4 extremities spontaneously. No edema, normal radial and dorsalis pedis pulses bilaterally. No cyanosis. BACK: no cervical, thoracic, lumbar midline tenderness. No saddle anesthesia, n ormal distal neurovascular exam. Moves all extremities in full range of motion. NEUROLOGICAL: Alert and oriented x3. Normal speech. Cranial nerves II through XII grossly intact. Strength 5/5 in all extremities. PSYCH: Patient talks very rapidly and anxiously, persistently asking questions SKIN: Warm, dry, normal turgor. No rashes or lesions noted. Course - Re-evaluation Re-evalutation: I do not see any signs of trauma over the abdomen. I find it slightly strange that patient would only hit her abdomen when she fell from the steps, patient states she fell from less than 2 feet and there were only 2 small stairs. No signs of trauma in general, no other reported injuries. Overall suspicion is that patient is very anxious about the . Ultrasound shows intrauterine at 5 weeks with no noted bleeding or complications. hCG is appropriate elevated. Blood type is O- but patient has no subchorionic hemorrh age or vaginal bleeding therefore RhoGam was not given. Urinalysis unremarkable, laboratory work-up unremarkable. Very low suspicion of concerning injury from the reported fall. Patient had been given Reglan for nausea on request, she states this did not help at all, she is requesting Zofran which she has had good results within the past. I discussed pros and cons of this, patient persists in wanting Zofran and therefore was provided with this. Provided with her for , discussed details, discussed follow-up and return precautions. Patient states understanding and agreement. Stable and well-appearing at time of discharge. - Vital Signs Vital signs: Temp Pulse Resp BP Pulse Ox 98.5 F 10/13/19 03:54 - Laboratory Result Diagrams: 10/13/19 04:25 10/13/19 04:25 Laboratory results interpreted by me: 10/13/19 10/13/19 04:25 04:25 WBC 10.8 H Sodium 136.8 L Chloride 108 H Beta HCG, Quant 2451.20 H Discharge - Discharge Clinical Impression: Abdominal pain affecting , Nausea and vomiting during Fall Qualifiers: Encounter type: initial encounter Qualified Code(s): W19.XXXA - Unspecified fall, initial encounter Condition: Stable Disposition: HOME, SELF-CARE Additional Instructions: Your ultrasound shows a in the uterus with no concerning findings. Yo ur remaining work-up does not show any concerning findings. Follow-up initially with the health department, call the listed referral tomorrow to set up your follow-up and additional management. Continue your vitamins, take Zofran if needed for nausea, you can take Tylenol if needed for pain. Return for any concerning symptoms including uncontrolled vomiting, severe worsening abdominal pain, passing out, or any other concerning or worsening symptoms. Prescriptions: Ondansetron [Zofran Odt 4 mg Tablet] 1 - 2 tab PO Q4H PRN #20 tab.rapdis PRN Reason: For Nausea/Vomiting Referrals: [facility] [NO LOCAL MD] - Follow up tomorrow
[2019-10-13 04:56] LABS: ABSOLUTE BASOPHILS # (AUTO) 0.1 10^3/uL (0.0-0.2); ABSOLUTE EOSINOPHILS # (AUTO) 0.1 10^3/uL (0.0-0.6); ABSOLUTE LYMPHOCYTES (AUTO) 2.3 10^3/uL (0.5-4.7); ABSOLUTE NEUT (AUTO) 7.4 10^3/uL (1.7-8.2); BASOPHILS % (AUTO) 0.5 % (0-2); EOSINOPHILS % (AUTO) 0.7 % (0-6); HEMATOCRIT 42.7 % (36.0-47.0); HEMOGLOBIN 14.8 g/dL (12.0-15.5); MEAN CORPUSCULAR HEMOGLOBIN 30.5 pg (27.0-33.4); MEAN CORPUSCULAR HGB CONC 34.8 g/dL (32.0-36.0); MEAN CORPUSCULAR VOLUME 88 fl (80-97); MONOCYTES % (AUTO) 9.2 % (3-13); PLATELET COUNT 207 10^3/uL (150-450); RED BLOOD COUNT 4.86 10^6/uL (3.72-5.28); RED CELL DISTRIBUTION WIDTH 12.3 % (11.5-14.0); SEGMENTED NEUTROPHILS % (AUTO) 68.6 % (42-78); TOTAL CELLS COUNTED % (AUTO) 100 %; WHITE BLOOD COUNT 10.8 10^3/uL (4.0-10.5)
[2019-10-13 05:17] LABS: ALBUMIN 4.5 g/dL (3.5-5.0); ALKALINE PHOSPHATASE 79 U/L (38-126); ANION GAP 6 (5-19); ASPARTATE AMINO TRANSFERASE 15 U/L (14-36); BILIRUBIN,TOTAL 0.9 mg/dL (0.2-1.3); BLOOD UREA NITROGEN 11 mg/dL (7-20); CALCIUM 9.5 mg/dL (8.4-10.2); CARBON DIOXIDE 23 mmol/L (22-30); CHLORIDE 108 mmol/L (98-107); GLUCOSE 91 mg/dL (75-110); TOTAL PROTEIN 7.5 g/dL (6.3-8.2)
--- NOTE | 2019-10-13 05:50 | RADIOLOGY REPORT (SQ) ---
CLINICAL HISTORY: abd pain, abd injury, + pregn COMPARISON: None. TECHNIQUE: US TRANSVAGINAL 10/13/2019 4:10 AM CDT FINDINGS: The uterus measures 7.5 cm. There is a 4 mm gestational sac within the uterus corresponds to five weeks one day. Yolk sac and pole not seen. Right ovary is not seen. Left ovary is unremarkable with patent flow. IMPRESSION: Early intrauterine gestational sac.
[2019-10-13] MEDS ORDERED: ONDANSETRON ODT 4 MG TAB (6 TAB/ER DISP) PO PRN (06:55)
[2019-10-13 07:11] LABS: APPEARANCE,URINE SLIGHTLY-CLOUDY; BILIRUBIN,URINE NEGATIVE (NEGATIVE); COLOR,URINE YELLOW; GLUCOSE, URINE NEGATIVE (NEGATIVE); KETONES,URINE NEGATIVE (NEGATIVE); LEUKOCYTE ESTERASE,URINE NEGATIVE (NEGATIVE); NITRITE,URINE NEGATIVE (NEGATIVE); PROTEIN,URINE NEGATIVE (NEGATIVE); UROBILINOGEN,URINE NEGATIVE mg/dL (<2.0)
[2019-10-13 07:51] VITALS: BP 111/63
== END 2019-10-13 07:42 | disposition home or self-care (01) ==
LOC: ER 03:45
DX: O21.9 Vomiting of pregnancy, unspecified (principal); O9A.211 Injury, poisoning and certain other consequences of external causes complicating pregnancy, first trimester; O26.891 Other specified pregnancy related conditions, first trimester; R10.9 Unspecified abdominal pain; W19.XXXA Unspecified fall, initial encounter; Z3A.01 Less than 8 weeks gestation of pregnancy; Z88.0 Allergy status to penicillin; Z88.8 Allergy status to other drugs, medicaments and biological substances; J45.909 Unspecified asthma, uncomplicated; Z87.891 Personal history of nicotine dependence
CPT/HCPCS: 36415; 76817; 80053; 81001; 83690; 84702; 85025; 86900; 86901; 93976; 99284

== ENCOUNTER 2019-10-22 23:22 | Emergency (ER) | payer MEDICAID ==
[2019-10-22 23:55] VITALS: BP 108/55
[2019-10-23] MEDS ORDERED: NORMAL SALINE 1000 ML 1,000 ML IV ONE (00:10)
[2019-10-23] MEDS ORDERED: PROMETHAZINE HCL 25 MG TABLET PO ONE (00:11)
--- NOTE | 2019-10-23 01:20 | RADIOLOGY REPORT (SQ) ---
FIRST TRIMESTER OBSTETRIC ULTRASOUND: 10/23/2019 12:16 AM CDT COMPARISON: None available HISTORY: 19-year old patient with abdominal pain. TECHNIQUE: Multiple solis scale and color Doppler images of the pelvis were obtained transabdominally. FINDINGS: The uterus measures 7.3 x 5.3 x 4.0 cm. A single gestational sac is seen within the uterus. The sac contains both a yolk sac and an embryo. The crown-rump length measures 0.5 cm corresponding to 6 weeks and 2 day(s). Cardiac motion is present with a heart rate of 141 bpm. No perigestational hemorrhage is seen. The cervix measures 2.4 cm in length. The bilateral ovaries were not visualized and likely obscured by overlying bowel gas. No free fluid is seen in the cul-de-sac. IMPRESSION: Single live intrauterine at 6 weeks and 0 day(s) consistent with an estimated due date of 06/15/2020. Obstetric follow up for routine care should be performed.
[2019-10-23 02:02] LABS: APPEARANCE,URINE CLOUDY; BILIRUBIN,URINE NEGATIVE (NEGATIVE); COLOR,URINE YELLOW; GLUCOSE, URINE NEGATIVE (NEGATIVE); KETONES,URINE NEGATIVE (NEGATIVE); LEUKOCYTE ESTERASE,URINE NEGATIVE (NEGATIVE); NITRITE,URINE NEGATIVE (NEGATIVE); PROTEIN,URINE 30 mg/dL (NEGATIVE); URINE SPECIFIC GRAVITY 1.025
== END 2019-10-23 06:58 | disposition left against medical advice (07) ==
LOC: ER 23:22
DX: O26.891 Other specified pregnancy related conditions, first trimester (principal); R10.9 Unspecified abdominal pain; Z3A.01 Less than 8 weeks gestation of pregnancy
CPT/HCPCS: 76801; 81001; 93976

== ENCOUNTER 2019-10-29 21:34 | Emergency (ER) | payer MEDICAID ==
--- NOTE | 2019-10-29 23:11 | ER Document Report ---
ED Medical Screen (RME) - General Chief Complaint: Vag Bleeding, +preg <12wks Stated Complaint: LOW ABDOMINAL PAIN Time Seen by Provider: 10/29/19 23:10 Mode of Arrival: Wheelchair Information source: Patient Notes: 19-year-old female presented to ED for and vaginal bleeding. She states she has had pelvic pain for couple weeks. She states she has been nauseated and vomiting dry heaving. She states she is 1 para 0. She states she was seen about 2 to 3 weeks ago. She states she did stop smoking after she found out she was . Patient is alert oriented respirations regular nonlabored speaking in full sentences. I have greeted and performed a rapid initial assessment of this patient. A comprehensive ED assessment and evaluation of the patient, analysis of test results and completion of medical decision making process will be conducted by an additional ED providers. TRAVEL OUTSIDE OF THE [place] IN LAST 30 DAYS: No - Related Data Allergies/Adverse Reactions: clozapine [From Clozaril] Allergy (Severe, Verified 10/23/19 00:08) amoxicillin [From Augmentin] Allergy (Verified 10/23/19 00:08) amphetamine [From Adderall] Allergy (Verified 10/23/19 00:08) bupropion [From Wellbutrin] Allergy (Verified 10/23/19 00:08) clavulanic acid [From Augmentin] Allergy (Verified 10/23/19 00:08) dextroamphetamine [From Adderall] Allergy (Verified 10/23/19 00:08) latex Allergy (Verified 10/23/19 00:08) Penicillins Allergy (Verified 10/23/19 00:08) pineapple Allergy (Verified 10/23/19 00:08) shellfish derived Allergy (Verified 10/23/19 00:08) trazodone Allergy (Verified 10/23/19 00:08) Past Medical History Pulmonary Medical History: Reports: Hx Asthma, Hx Bronchitis Neurological Medical History: Reports: Hx Seizures - Patient describes his seizures has stress-induced seizures. Endocrine Medical History: Denies: Hx Diabetes Mellitus Type 1, Hx Diabetes Mellitus Type 2 Renal/ Medical History: Denies: Hx Peritoneal Dialysis Musculoskeltal Medical History: Reports Hx Arthritis Psychiatric Medical History: Reports: Hx Anxiety, Hx Attention Deficit Hyperactivity Disorder, Hx Bipolar Disorder, Hx Borderline Personality Disorder, Hx Depression, Hx Obsessive Compulsive Disorder, Hx Post Traumatic Stress Disorder Past Surgical History: Reports: Hx Oral Surgery, Hx Orthopedic Surgery - Immunizations Hx Diphtheria, Pertussis, Tetanus Vaccination: Yes Physical Exam - Vital signs Vitals: Temp Pulse Resp BP Pulse Ox 98.0 F 85 20 112/56 L 99 10/29/19 22:14 10/29/19 22:14 10/29/19 22:14 10/29/19 22:14 10/29/19 22:14 Course - Vital Signs Vital signs: Temp Pulse Resp BP Pulse Ox 98.0 F 85 20 112/56 L 99 10/29/19 22:14 10/29/19 22:14 10/29/19 22:14 10/29/19 22:14 10/29/19 22:14
--- NOTE | 2019-10-30 00:41 | RADIOLOGY REPORT (SQ) ---
US PELVIS HISTORY: Early . Pelvic pain. COMPARISON: 10/23/2019 TECHNIQUE: Grayscale, color Doppler, and spectral Doppler ultrasound images of the pelvis were obtained. FINDINGS: There is an intrauterine gestational sac with a yolk sac and pole visualized. The crown-rump length measures 0.92 cm corresponding to 7 weeks 0 days. The heart rate is 149 bpm. The cervix is 3 cm and is closed. The right ovary was not visualized. The left ovary measures 2.0 x 1.9 cm and contains normal color Doppler blood flow. No pelvic free fluid is seen. IMPRESSION: Single live IUP with estimated gestational age 7 weeks 0 days.
[2019-10-30 01:28] LABS: APPEARANCE,URINE SLIGHTLY-CLOUDY; BILIRUBIN,URINE NEGATIVE (NEGATIVE); COLOR,URINE YELLOW; GLUCOSE, URINE NEGATIVE (NEGATIVE); KETONES,URINE TRACE mg/dL (NEGATIVE); LEUKOCYTE ESTERASE,URINE NEGATIVE (NEGATIVE); NITRITE,URINE NEGATIVE (NEGATIVE); PROTEIN,URINE 30 mg/dL (NEGATIVE); URINE SPECIFIC GRAVITY 1.033
[2019-10-30 01:32] LABS: ADD MANUAL MICROSCOPIC YES
[2019-10-30 01:33] LABS: BACTERIA,URINE TRACE /HPF; RBC,URINE RARE /HPF
[2019-10-30] MEDS ORDERED: NORMAL SALINE 1000 ML 1,000 ML IV ONE (06:08)
[2019-10-30] MEDS ORDERED: METOCLOPRAMIDE HCL INJ/PF 10 MG/2 ML SDV IV ONE ×2 (06:09→07:30)
[2019-10-30 06:34] LABS: ABSOLUTE LYMPHOCYTES (AUTO) 3.1 10^3/uL (0.5-4.7); ABSOLUTE MONOCYTES (AUTO) 1.2 10^3/uL (0.1-1.4); ABSOLUTE NEUT (AUTO) 11.5 10^3/uL (1.7-8.2); BASOPHILS % (AUTO) 0.3 % (0-2); EOSINOPHILS % (AUTO) 0.3 % (0-6); HEMATOCRIT 44.8 % (36.0-47.0); HEMOGLOBIN 15.4 g/dL (12.0-15.5); LYMPHOCYTES % (AUTO) 19.4 % (13-45); MEAN CORPUSCULAR HEMOGLOBIN 30.2 pg (27.0-33.4); MEAN CORPUSCULAR HGB CONC 34.3 g/dL (32.0-36.0); MEAN CORPUSCULAR VOLUME 88 fl (80-97); MONOCYTES % (AUTO) 7.7 % (3-13); PLATELET COUNT 214 10^3/uL (150-450); RED BLOOD COUNT 5.08 10^6/uL (3.72-5.28); RED CELL DISTRIBUTION WIDTH 12.3 % (11.5-14.0); SEGMENTED NEUTROPHILS % (AUTO) 72.3 % (42-78); TOTAL CELLS COUNTED % (AUTO) 100 %; WHITE BLOOD COUNT 15.8 10^3/uL (4.0-10.5)
[2019-10-30 06:42] LABS: ALBUMIN 5.3 g/dL (3.5-5.0); ALKALINE PHOSPHATASE 67 U/L (38-126); ANION GAP 13 (5-19); ASPARTATE AMINO TRANSFERASE 19 U/L (14-36); BILIRUBIN,DIRECT 0.2 mg/dL (0.0-0.4); BLOOD UREA NITROGEN 10 mg/dL (7-20); CALCIUM 10.1 mg/dL (8.4-10.2); CARBON DIOXIDE 23 mmol/L (22-30); CHLORIDE 104 mmol/L (98-107); GLUCOSE 100 mg/dL (75-110); POTASSIUM 3.8 mmol/L (3.6-5.0); TOTAL PROTEIN 8.7 g/dL (6.3-8.2)
--- NOTE | 2019-10-30 07:00 | ER Document Report ---
ED General - General Chief Complaint: Vag Bleeding, +preg <12wks Stated Complaint: LOW ABDOMINAL PAIN Time Seen by Provider: 10/29/19 23:10 Mode of Arrival: Wheelchair Information source: Patient TRAVEL OUTSIDE OF THE [place] IN LAST 30 DAYS: No - HPI Notes: Patient presents with 2 days of vaginal bleeding. She states at times it was bright red at other times it was only spotting. She states currently she is not bleeding. She states she is also been having abdominal pain that is mainly epigastric. She states she is approximately 7 weeks. She states she does not yet have an [facility] [employer] doctor. She states she is had a large with nausea and vomiting and is unable to keep down liquids or solids. She states this is her first . Her pain has been constant. Nothing makes it better or worse. It does not radiate. It is moderate to severe in intensity. It is sharp and located mainly in the upper epigastric area. - Related Data Allergies/Adverse Reactions: clozapine [From Clozaril] Allergy (Severe, Verified 10/23/19 00:08) amoxicillin [From Augmentin] Allergy (Verified 10/23/19 00:08) amphetamine [From Adderall] Allergy (Verified 10/23/19 00:08) bupropion [From Wellbutrin] Allergy (Verified 10/23/19 00:08) clavulanic acid [From Augmentin] Allergy (Verified 10/23/19 00:08) dextroamphetamine [From Adderall] Allergy (Verified 10/23/19 00:08) latex Allergy (Verified 10/23/19 00:08) Penicillins Allergy (Verified 10/23/19 00:08) pineapple Allergy (Verified 10/23/19 00:08) shellfish derived Allergy (Verified 10/23/19 00:08) trazodone Allergy (Verified 10/23/19 00:08) Past Medical History - General Information source: Patient - Social History Smoking Status: Never Smoker Chew tobacco use (# tins/day): No Frequency of alcohol use: None Drug Abuse: None Family History: Reviewed & Not Pertinent Patient has homicidal ideation: No Pulmonary Medical History: Reports: Hx Asthma, Hx Bronchitis Neurological Medical History: Reports: Hx Seizures - Patient describes his seizures has stress-induced seizures. Endocrine Medical History: Denies: Hx Diabetes Mellitus Type 1, Hx Diabetes Mellitus Type 2 Renal/ Medical History: Denies: Hx Peritoneal Dialysis Musculoskeletal Medical History: Reports Hx Arthritis Psychiatric Medical History: Reports: Hx Anxiety, Hx Attention Deficit Hyperactivity Disorder, Hx Bipolar Disorder, Hx Borderline Personality Disorder, Hx Depression, Hx Obsessive Compulsive Disorder, Hx Post Traumatic Stress Disorder Past Surgical History: Reports: Hx Oral Surgery, Hx Orthopedic Surgery - Immunizations Hx Diphtheria, Pertussis, Tetanus Vaccination: Yes Review of Systems - Review of Systems Constitutional: denies: Chills, Fever Cardiovascular: denies: Chest pain, Palpitations Respiratory: denies: Cough, Short of breath -: Yes All other systems reviewed and negative Physical Exam - Vital signs Vitals: Temp Pulse Resp BP Pulse Ox 98.0 F 85 20 112/56 L 99 10/29/19 22:14 10/29/19 22:14 10/29/19 22:14 10/29/19 22:14 10/29/19 22:14 Interpretation: Normal - General General appearance: Appears well, Alert - HEENT Head: Normocephalic, Atraumatic Eyes: Normal Pupils: PERRL - Respiratory Respiratory status: No respiratory distress Chest status: Nontender Breath sounds: Normal Chest palpation: Normal - Cardiovascular Rhythm: Regular Heart sounds: Normal auscultation Murmur: No - Abdominal Inspection: Normal Distension: No distension Bowel sounds: Normal Tenderness: Tender - moderate diffuse tenderness with voluntary guarding Organomegaly: No organomegaly - Back Back: Normal, Nontender - Extremities General upper extremity: Normal inspection, Nontender, Normal color, Normal ROM, Normal temperature General lower extremity: Normal inspection, Nontender, Normal color, Normal ROM, Normal temperature, Normal weight bearing. No: Aroldo's sign - Neurological Neuro grossly intact: Yes Cognition: Normal Orientation: AAOx4 Roly Coma Scale Eye Opening: Spontaneous Roly Coma Scale Verbal: Oriented Roly Coma Scale Motor: Obeys Commands [place] Coma Scale Total: 15 Speech: Normal Motor strength normal: LUE, RUE, LLE, RLE Sensory: Normal - Psychological Associated symptoms: Normal affect, Normal mood - Skin Skin Temperature: Warm Skin Moisture: Dry Skin Color: Normal Course - Re-evaluation Re-evalutation: 10/30/19 11:12 Patient presents with abdominal pain vaginal bleeding and vomiting. This is her first . Ultrasound shows patient be approximately 7 weeks along with a n unremarkable intrauterine at this point. She was O- so RhoGam was administered. Symptoms are significantly better now. Patient be discharged home with Reglan. I did call and talk with the [facility] [employer] doctor marketing education teacher who says she can see her in the office but first patient has to go to the health department. This was all explained to the patient. - Vital Signs Vital signs: Temp Pulse Resp BP Pulse Ox 97.7 F 80 20 104/64 99 10/30/19 03:10 10/30/19 03:10 10/29/19 22:14 10/30/19 07:01 10/30/19 03:10 - Laboratory Result Diagrams: 10/30/19 06:18 10/30/19 06:18 Laboratory results interpreted by me: 10/30/19 10/30/19 10/30/19 01:07 06:18 06:18 WBC 15.8 H Absolute Neuts (auto) 11.5 H Total Bilirubin 2.0 H Total Protein 8.7 H Albumin 5.3 H Beta HCG, Quant 330365.00 H Urine Protein 30 H Urine Ketones TRACE H Urine Urobilinogen 4.0 H - Diagnostic Test Radiology reviewed: Image reviewed, Reports reviewed Discharge - Discharge Clinical Impression: Hyperemesis gravidarum, Threatened in first trimester Rh negative status during Qualifiers: Trimester: first trimester Qualified Code(s): O26.891 - Other specified related conditions, first trimester; Z67.91 - Unspecified blood type, Rh negative Condition: Stable Disposition: HOME, SELF-CARE Instructions: Reglan ([facility]), Threatened Miscarriage ([facility]), Rhogam ([facility]), ([facility]), Vomiting ([facility]), Bleeding During Early ([facility]), Intravenous (IV) Fluids ([facility]) Additional Instructions: Please call the health department as soon as possible to arrange follow-up. The health department will then take care of helping you get into see someone in Dr. David's office. Prescriptions: Metoclopramide HCl [Reglan 10 mg Tablet] 1 tab PO ASDIR PRN #25 tablet PRN Reason: For Nausea/Vomiting Forms: Return to Work [facility] - Follow up in 3-5 days
[2019-10-30] MEDS ORDERED: MORPHINE SULFATE 10 MG/ML INJ IV ONE (07:30)
--- NOTE | 2019-10-30 10:53 | RADIOLOGY REPORT (SQ) ---
EXAM DESCRIPTION: U/S ABDOMEN LIMITED W/O DOP IMAGES COMPLETED DATE/TIME: 10/30/2019 10:40 am REASON FOR STUDY: ruq pain COMPARISON: 02/13/2018 TECHNIQUE: Dynamic and static grayscale images acquired of the abdomen and recorded on PACS. Additio dale selected color Doppler and spectral images recorded. LIMITATIONS: None. FINDINGS: PANCREAS: No masses. Visualized pancreatic duct normal caliber. LIVER: No masses. Echotexture normal. LIVER VASCULATURE: Normal directional flow of the main portal vein and hepatic veins. GALLBLADDER: No stones. Normal wall thickness. No pericholecystic fluid. ULTRASOUND-DETECTED ROSAS'S SIGN: Negative. INTRAHEPATIC DUCTS AND COMMON DUCT: CBD and intrahepatic ducts normal caliber. No filling defects. INFERIOR VENA CAVA: Normal flow. AORTA: No aneurysm. RIGHT KIDNEY: Normal size. Normal echogenicity. No solid or suspicious masses. No hydronephrosis. No calcifications. PERITONEAL AND RIGHT PLEURAL SPACE: No ascites or effusions. OTHER: No other significant findings. IMPRESSION: NORMAL RIGHT UPPER QUADRANT ULTRASOUND. TECHNICAL DOCUMENTATION: JOB ID: [id number] [employer] All Rights Reserved Reading location - IP/workstation name: [email or web address]
[2019-10-30 11:51] VITALS: BP 112/57
== END 2019-10-30 11:51 | disposition home or self-care (01) ==
LOC: ER 21:34
DX: O20.0 Threatened abortion (principal); O26.891 Other specified pregnancy related conditions, first trimester; R10.13 Epigastric pain; R10.817 Generalized abdominal tenderness; O21.0 Mild hyperemesis gravidarum; O99.511 Diseases of the respiratory system complicating pregnancy, first trimester; J45.909 Unspecified asthma, uncomplicated; Z67.91 Unspecified blood type, Rh negative; Z3A.00 Weeks of gestation of pregnancy not specified; Z88.8 Allergy status to other drugs, medicaments and biological substances; Z88.0 Allergy status to penicillin; Z91.040 Latex allergy status; Z91.018 Allergy to other foods; Z91.013 Allergy to seafood
CPT/HCPCS: 96376; 99285; 96372; 96361; 96374; 96375; 86900; 86901; 36415; 86850; 84702; 83690; 85025; 80053; 81001; 76817; 76705; J2790; J2765; J2270; J7030

== ENCOUNTER 2019-12-23 02:33 | Emergency (ER) | payer MEDICAID ==
[2019-12-23 02:52] VITALS: BP 107/57
== END 2019-12-23 05:00 | disposition left against medical advice (07) ==
LOC: ER 02:33
DX: Z53.21 Procedure and treatment not carried out due to patient leaving prior to being seen by health care provider (principal); O21.9 Vomiting of pregnancy, unspecified; Z3A.14 14 weeks gestation of pregnancy